=== PATIENT | female | born 1935 | race Caucasian/White ===

== ENCOUNTER 2018-10-21 02:05 | Inpatient (IN) | payer MEDICARE, SELFPAY ==
[2018-10-21] VITALS (13 sets, daily range): BP systolic 95–123; BP diastolic 46–63; PULSE 68–96; RESP 16–18; TEMP 36.1–37.4; O2SAT 92–96; BMI 23.6; BMI 23.7
--- NOTE | 2018-10-21 03:57 | HP.PCM_ITS ---
Problem List (1) Fracture, intertrochanteric, right femur Status: Acute (2) REJI (obstructive sleep apnea) Status: Acute (3) HLD (hyperlipidemia) Status: Acute History of Present Illness Date of Admission: 10/21/18 Chief Complaint: Right hip pain The patient is a 83 year old F with PMH as below who presents to the hospital after mechanical fall at home. But 10 minutes prior she had been doing her sciatica floor exercises and got up and was doing okay and was walking from the living room to the kitchen when she thinks that she tripped either on a fold in the carpet or on her sock and fell on her right side. She initially went to [facility] and had to be transferred here because he did not have any beds available. Initially the orthopedic surgeon on-call was paged and he accepted the patient with the caveat that medicine admit because of her history of hyperlipidemia and obstructive sleep apnea. Other than the hip fracture she states that she has been in her usual health. She tries not to take many medications and is only on an aspirin, and red yeast rice. She also states that she has chronic right arm swelling from lymphedema secondary to an axillary lymph node dissection where they removed 18 lymph nodes secondary to a right breast mass after lumpectomy. Denies any chest pain, shortness of breath, lightheadedness or dizziness. She states that she is able to walk for 25 minutes a day and does not get short of breath going up and down stairs. She does not bruise easily though she did have heavy menstrual periods prior to menopause. EKG at the outside facility appears normal and her CBC and BMP at the outside hospital were also normal. PT/INR had not been obtained. Also she had a chest x-ray at the outside hospital which was read as normal and she had the right hip x-ray which showed the nondisplaced right intertrochanteric femur fracture. Did not repeat any of these images as a CD had been sent with her records and can be reviewed. Past Medical History Allergies sulfamethoxazole [From Septra] Allergy (Verified 10/21/18 02:22) Swelling trimethoprim [From Septra] Allergy (Verified 10/21/18 02:22) Swelling ciprofloxacin [From Cipro] Adverse Reaction (Verified 10/21/18 02:22) Other ankle swelled up and could not move legs Home Medications: Ambulatory Orders Medication Instructions Recorded Aspirin [Aspirin, Baby] 81 mg PO SUMOWEFR 10/21/18 Gluc Dominguez/Chondro Dominguez A/Vit C/Mn 1 each PO TIDCM 10/21/18 [Glucosamine-Chondroitin Cap] Pyridoxine HCl [Vitamin B-6] 50 mg PO DAILY 10/21/18 Red Yeast Rice 600 mg PO SA 10/21/18 Surgical History: - - Lumpectomy on the right with lymph node dissection Smoking Status: Never smoker Alcohol: None Drugs: None - *Family History Maternal History Items: Cancer, Heart Disease Paternal History Items: Heart Disease Review of Systems Constitutional: Denies: Chills, Fever, Weight Change HEENT: Denies: Head Aches, Sinus Congestion, Sinus Drainage Cardiovascular: Denies: Chest Pain, Palpitations Respiratory: Denies: Cough, Shortness of breath at rest, Sputum production Gastrointestinal: Denies: Abdominal Pain, Nausea, Vomiting Genitourinary: Denies: Dysuria Musculoskeletal: Reports: - - Right hip pain. Denies: Joint Pain, Joint Tenderness Skin: Denies: Rash, Wounds Neurological: Denies: Numbness, Tingling, Focal weakness Psychiatric: Denies: Anxiety, Depression, Homicidal Ideations, Suicidal Ideations Hematologic/ Lymphatic: Denies: Easy Bruising, Easy Bleeding VTE Information - Inpt Only VTE Present on Admission: No Patient Problems: Active and Suspected Problems Fracture, intertrochanteric, right femur (Acute) REJI (obstructive sleep apnea) (Acute) HLD (hyperlipidemia) (Acute) - Physical Exam General: Alert, Oriented x3, Cooperative, No apparent distress HEENT: Atraumatic, PERRLA, EOMI, Normocephalic Oral: Moist Mucosa Neck: Supple, No JVD, Trachea Midline Lungs: Clear to auscultation, Normal air movement, No rhonchi, No wheeze, No rales Cardiovascular: Regular rate, Regular Rhythm, Normal S1, Normal S2, No murmurs Abdomen: Soft, Non Tender, Non-Distended, No Hepato-splenomegaly Extremities: Capillary Refill Less than 3 Seconds, Edema - Right upper extremity nonpitting Skin: No rashes, No breakdown Musculoskeletal: Tenderness - Right hip Neurological: Neuro grossly intact, Sensory exam intact to light touch and pain Psych/Mental Status: Normal Affect, Appropriate Vital Signs Temp Pulse Resp BP Pulse Ox 98.1 F 88 18 116/51 L 93 10/21/18 02:16 10/21/18 02:16 10/21/18 02:16 10/21/18 02:16 10/21/18 02:16 Oxygen Delivery Method Room Air Weight: 142 lb 3.17 oz Body Mass Index (BMI) 23.6 Assessment/Plan All Active Problems Fracture, intertrochanteric, right femur (Acute) REJI (obstructive sleep apnea) (Acute) HLD (hyperlipidemia) (Acute) 1. Right nondisplaced intertrochanteric femur fracture -Consult to orthopedic surgery for evaluation and management -We will control pain -Zofran for nausea as needed -PT/OT -Make n.p.o. for now pending surgical evaluation -We will hold her home aspirin -We will obtain a PT/INR in the morning as this was not done at the outside hospital 2. HLD -She can continue her red yeast rice -We do not have any lipid values in this hospital system 3. REJI -Stable -We will continue with her CPAP at night E: SCDs Code Visit Inpatient E&M: 57559 Init Hosp L2
[2018-10-21 05:09] LABS: Absolute Lymphocyte Count 0.66 X10^3/ul (0.83-4.51); Absolute Neutrophil Count 6.8 X10^3/uL (2.0-7.7); Basophil# 0.02 X10^3/uL; Basophil% 0.2 % (0-1); Eosinophil# 0.05 X10^3/uL; Eosinophils% 0.6 % (0-5); Hematocrit 37.3 % (37-47); Hemoglobin 12.1 g/dl (12.0-15.0); Lymphocyte # 0.66 X10^3/ul (4.0); Lymphocyte % 7.7 % (19-41); Mean Corp Hgb Conc 32.4 g/gl (32-36); Mean Corpuscular Hgb 30.3 pg (27.0-32.0); Mean Corpuscular Volume 93.3 fL (81-99); Mean Platelet Vol. 10.1 fl (6.2-12.0); Monocyte# 1.07 X10^3/uL; Monocyte% 12.4 % (0-10); Neutrophil # 6.79 X10^3/uL (2.7-7.7); Platelet Count 196 K/mm3 (150-450); RBC Distribution Width CV 13.4 % (11.6-14.6); RBC Distribution Width SD 44.7 fl (35.1-43.9); White Blood Count 8.6 K/mm3 (4.4-11.0)
[2018-10-21 05:13] LABS: POSITIVE COUNT NO; POSITIVE DIFFERENTIAL NO; POSITIVE MORPHOLOGY NO
[2018-10-21] MEDS: Morphine 2 MG/ML Syringe IV ×3 (05:16→11:37)
[2018-10-21 05:18] LABS: Prothrombin Time (Protime)PT. 13.2 SECONDS (11.7-14.9)
[2018-10-21 05:28] LABS: Anion Gap 7 (5-15); BUN 21 mg/dL (7-18); BUN/Creat Ratio 24.5 RATIO (10-20); Calcium,Total 8.6 mg/dL (8.5-10.1); Chloride 110 mmol/L (98-107); Creatinine, Serum 0.86 mg/dL (0.55-1.02); EST Glomerular Filtration Rate 67 mL/min (>60); Est Glom Filt Rate - Afr Amer 81 mL/min (>60); Estimated Creatinine Clearance 45.38 ml/min; Glucose 118 mg/dL (74-106); Potassium 3.8 mmol/L (3.5-5.1); Sodium Level 142 mmol/L (136-145)
--- NOTE | 2018-10-21 07:09 | RAD_ITS ---
STUDY: X-RAY - PELVIS AND RIGHT HIP REASON FOR EXAM: Female, 83 years old. ORIF TECHNIQUE: 6 Limited fluoroscopic views of the pelvis and hip. COMPARISON: None. FINDINGS: 6 intraoperative fluoroscopic images were obtained as the patient is undergone ORIF of a subcapital femoral neck fracture. RAD/Hip Min 2 Views (Portable) IMPRESSION: ORIF Electronically Signed: Konrad Cason MD at 15:30 EDT , Service support ,
[2018-10-21] MEDS: 0.9% NaCl Peripheral Flush Adult/Peds IV (08:32)
--- NOTE | 2018-10-21 09:39 | PCM.PROGNOTE ---
Patient Problems: Active and Suspected Problems Fracture, intertrochanteric, right femur (Acute) REJI (obstructive sleep apnea) (Acute) HLD (hyperlipidemia) (Acute) Subjective: The patient is an 83-year-old female with a past medical history of obstructive sleep apnea, breast cancer (diagnosed and treated approximately 10 years ago - follows with Dr. Logan),OA, vitamin D deficiency and hyperlipidemia who presented to [facility] emergency department after a mechanical fall at home. Vital signs of presentation to the emergency room for 98.1 temp, heart rate of 88, blood pressure 116/51, respiratory rate of 18 and she was 93% saturated on room air. Review of the laboratory shows a white blood cell count of 8.6 with 79% neutrophils, likely due to stress. EMILY globin was 12.1 and platelet count was 196,000. BMP is remarkable for an elevated BUN at 21 with a creatinine of 0.86. Random blood sugar was mildly increased at 118. EKG shows normal sinus rhythm with incomplete right bundle branch block. CXR at outside ED showed no infiltrates, pleural effusions or pulmonary vascular congestion. She was admitted to the hospital and Dr. Hwang was consulted for ORIF of the right hip. . Blood pressure is currently 95/57 with a MAP of 69. The current decrease is likely due to morphine sulfate given at 830 adn dehydration. She denies CP, SOB, nausea, abdominal pain. MS is controlling the pain adequately. CPAP pressure is 8 - Physical Exam General: Alert, Oriented x3, Cooperative, Well developed, Well nourished HEENT: Atraumatic, PERRLA, Normocephalic Oral: Dry Mucosa, - - she has an overbite Neck: Supple, No JVD, Negative Carotid Bruits, - - Carotids have brisk upstroke and excellent pulse volume bilaterally Lungs: Clear to auscultation Cardiovascular: Regular rate, Regular Rhythm, Normal S1, Normal S2, No murmurs, No Ectopic Activity, No rub noted, No Gallop Abdomen: Bowel Sounds Present, Soft, Non Tender, Non-Distended Extremities: No clubbing, No cyanosis, No edema, Capillary Refill Less than 3 Seconds, No Calf Tenderness, Peripheral Pulses Normal, - - The right lower extremity is shortened and externally rotated Skin: No rashes, No breakdown Musculoskeletal: No Muscle Wasting, Arthritic Changes Neurological: Cranial nerves II-XII grossly intact, Neuro grossly intact Psych/Mental Status: Normal Affect, Appropriate Vital Signs Temp Pulse Resp BP Pulse Ox 98.1 F 78 16 95/57 L 93 10/21/18 08:35 10/21/18 08:35 10/21/18 08:35 10/21/18 08:35 10/21/18 08:35 Oxygen Delivery Method Room Air Weight: 142 lb 3.17 oz Body Mass Index (BMI) 23.6 Intake and Output for Last 24 Hours 10/19/18 10/20/18 10/21/18 23:59 23:59 23:59 Output Total 400 / 400 Balance -400 / -400 Laboratory Tests Past 24 Hrs 10/21/18 10/21/18 10/21/18 04:48 04:48 04:48 WBC 8.6 RBC 4.00 L Hgb 12.1 Hct 37.3 MCV 93.3 MCH 30.3 MCHC 32.4 RDW 13.4 RDW Differential 44.7 H Plt Count 196 MPV 10.1 Immature Gran % (Auto) 0.100 Neut % (Auto) 79.0 H Lymph % (Auto) 7.7 L [place] % (Auto) 12.4 H Eos % (Auto) 0.6 Baso % (Auto) 0.2 Absolute Neuts (auto) 6.8 Absolute Lymphs (auto) 0.66 L Total Counted Not Reportable PT 13.2 INR 1.0 Sodium 142 Potassium 3.8 Chloride 110 H Carbon Dioxide 25.0 Anion Gap 7 BUN 21 H Creatinine 0.86 Estim Creat Clear Calc 45.38 Est GFR (MDRD) Af Amer 81 Est GFR (MDRD) Non-Af 67 BUN/Creatinine Ratio 24.5 H Glucose 118 H Calcium 8.6 Blood Type Antibody Screen 10/21/18 04:48 WBC RBC Hgb Hct MCV MCH MCHC RDW RDW Differential Plt Count MPV Immature Gran % (Auto) Neut % (Auto) Lymph % (Auto) [place] % (Auto) Eos % (Auto) Baso % (Auto) Absolute Neuts (auto) Absolute Lymphs (auto) Total Counted PT INR Sodium Potassium Chloride Carbon Dioxide Anion Gap BUN Creatinine Estim Creat Clear Calc Est GFR (MDRD) Af Amer Est GFR (MDRD) Non-Af BUN/Creatinine Ratio Glucose Calcium Blood Type A POSITIVE Antibody Screen NEGATIVE Medical Necessity - Tobacco Use Smoking Status: Never smoker Assessment/Plan All Active Problems Fracture, intertrochanteric, right femur (Acute) REJI (obstructive sleep apnea) (Acute) HLD (hyperlipidemia) (Acute) Impressions 1. Intertrochanteric fracture of the right hip secondary to mechanical fall 2. Obstructive sleep apnea on CPAP at 8 cm of pressure 3. Hyperlipidemia 4. History of breast cancer diagnosed in 2008-follows with Dr. José Melchor 5. History of vitamin D deficiency 6. Dehydration-mucous membranes are dry and the BUN/creatinine ratio is 24.5 She is very active and exercises at least 4 times a week for 30 minutes, eats healthy 1 L of normal saline over the next 1 hour and then 75 cc an hour until surgery Recheck lab in the a.m. Melatonin at at bedtime for sleep Her son will bring her CPAP unit in Start Tylenol 1 g p.o. every 8 hours Tramadol 50 mg p.o. every 6 hours as needed pain PT/OT consults Prolonged Care Time: Additional care time for treatment, evaluation, stabilization, discussion with patient as well as family and consultants above initial 70 min progress note evaluation: 45 minutes Code Visit Procedures: 80091 Prolonged Physician INPT
--- NOTE | 2018-10-21 10:51 | CASEMGMT ---
Addendum entered by Ivet Durant 10/21/18 11:06: Pt does use CPAP at night. DODIE Cao Original Note: SW met w/pt in room, pt's sons Sarbjit and Aureliano are also present. SW spoke w/pt about prior level of function and discharge plan. PCP: JESSICA Arellano with [facility]. Pt asked about getting established with one of the doctors there--as her doctor there retired and then the other physicians had no space left. SW advised pt's son to call for her. Insurance/Prescription Benefit: [employer] Medicare Preferred Pharmacy: [facility], has use [facility] in the past. Pt is not on any medication regularly however. LW/POA: Pt states her sons Sarbjit and Aureliano have joint POA. LNOK: Pt has three sons, Sarbjit and Aureliano in [place], and son Jose Carlos in [place]. Pt also agreeable for Jose Carlos to attain medical information on pt. Local sons have been keeping Jose Carlos informed of what is going on. Living arrangements: Pt lives home alone in a ranch style house. Her in May. Prior Level of Function: Pt fully independent, managing well, though states she is having some decline in what she is able to do. DME/HHC/SNF: Pt has a cane but has not used it. No HHC, no history of SNF. Pt would like to go to [facility] at discharge, had already been thinking about putting herself on the wait list for when she needs it. SW gave son list of SNF's in Network, [facility] is in network w/insurance. [facility] called, there is bed availability in a semiprivate room, if they can take pt they could move pt to private room when available. JAYLON faxed initial clinical information to [facility]. SW let pt and sons know that [facility] does have availability in a semiprivate room. Pt could go there to a semiprivate room--as long as they can take her--and move her to a private room when available. Pt agreeable to this. Pt also asked about SNF benefit w/insurance, [facility] called, pt has 100% coverage, no copays, unlimited days subject to precert. Pt has a $150 deductible. JAYLON gave pt and son this information. SW explained the hope would be she can go under her insurance and they would authorize her for as long as she needs to be there. If she were to need longer she could speak with [facility] about private paying. Pt's goal is to return home but states she does have some funds to pay privately if needed. Plan: [facility], will fax updates tomorrow to make sure [facility] can take her and if so they can start precert. SW will follow up tomorrow. DODIE Cao
[2018-10-21] MEDS: 0.9% Normal Saline 1,000 ML 500 ML IV (10:56)
--- NOTE | 2018-10-21 13:12 | CON.PCM_ITS ---
Reason for Consult Date of Consultation: 10/21/18 Reason for Consultation: Right intertrochanteric hip fracture. requested by Dr grady preston History of Present Illness: The patient is a 83 year old F with history of hyperlipidemia and REJI as well as right lumpectomy. Patient presents with right hip pain. Patient was in her home last evening doing stretches. When she stood up she noted feeling a little bit off and then she tripped over an inanimate but objects in her house. Deborah ruelas fell and immediately had pain on her right hip. She does report some chronic groin pain and difficulties with hip range of motion. However at this point she can no longer stand on her hip or leg. Patient was taken to the emergency department at [facility] due to lack of beds was transferred [facility] for definitive care. She was seen by medicine overnight and cleared. She reports 5 out of 10 pain worse with motion better with immobilization. She is also having improved pain with pain medications. She denies any numbness and tingling distally that is new however she does have chronic neuropathy of bilateral feet. It is a dull achy pain in her hip and thigh. Patient is a community ambulator who lives at home alone and functions independently. However, she does state that she has been thinking about using her previous 's cane as her stability has waned in the last couple of months. Past Medical History Allergies sulfamethoxazole [From Septra] Allergy (Verified 10/21/18 02:22) Swelling trimethoprim [From Septra] Allergy (Verified 10/21/18 02:22) Swelling ciprofloxacin [From Cipro] Adverse Reaction (Verified 10/21/18 02:22) Other ankle swelled up and could not move legs Home Medications: Ambulatory Orders Medication Instructions Recorded Aspirin [Aspirin, Baby] 81 mg PO SUMOWEFR 10/21/18 Gluc Dominguez/Chondro Dominguez A/Vit C/Mn 1 each PO TIDCM 10/21/18 [Glucosamine-Chondroitin Cap] Pyridoxine HCl [Vitamin B-6] 50 mg PO DAILY 10/21/18 Red Yeast Rice 600 mg PO SA 10/21/18 Surgical History: - - Lumpectomy on the right with lymph node dissection. Hysterectomy, right inguinal hernia repair Psychiatric History: No pertinent psych hx Lives: Alone Smoking Status: Never smoker Alcohol: None Drugs: None - *Family History Maternal History Items: Cancer, Heart Disease Paternal History Items: Heart Disease Review of Systems Constitutional: Denies: Chills, Fever, Weight Change HEENT: Denies: Head Aches, Sinus Congestion, Sinus Drainage Cardiovascular: Denies: Chest Pain, Palpitations Respiratory: Denies: Cough, Shortness of breath at rest, Sputum production Gastrointestinal: Denies: Abdominal Pain, Nausea, Vomiting Genitourinary: Denies: Dysuria Musculoskeletal: Reports: Joint Pain, Joint Tenderness Skin: Denies: Rash, Wounds Neurological: Reports: - - feels off balance at times. Denies: Focal weakness, Numbness, Tingling Psychiatric: Denies: Anxiety, Depression, Homicidal Ideations, Suicidal Ideations Hematologic/ Lymphatic: Denies: Easy Bruising, Easy Bleeding Patient Problems: Active and Suspected Problems Fracture, intertrochanteric, right femur (Acute) REJI (obstructive sleep apnea) (Acute) HLD (hyperlipidemia) (Acute) Objective: Right shoulder, knee chest and hip x-rays were reviewed. Pertinent findings were on the hip with severe osteoarthritis and a minimally displaced intertrochanteric hip fracture. - Physical Exam General: Alert, Oriented x3, Cooperative Extremities: - - Right lower extremity: Skin clean, dry, and intact. Limb is shortened and externally rotated Motor is intact dorsiflexion, EHL and plantar flexion. Sensation is intact to light touch saphenous, charo,l superficial peroneal, deep peroneal and tibial distributions. Calves are soft and supple. Vital Signs Temp Pulse Resp BP Pulse Ox 98.2 F 68 18 108/54 L 93 10/21/18 11:32 10/21/18 11:32 10/21/18 11:32 10/21/18 11:32 10/21/18 11:32 Oxygen Delivery Method Room Air Weight: 142 lb 3.17 oz Body Mass Index (BMI) 23.6 Intake and Output for Last 24 Hours 10/19/18 10/20/18 10/21/18 23:59 23:59 23:59 Intake Total 371 / 371 Output Total 700 / 700 Balance -329 / -329 Laboratory Tests Past 24 Hrs 10/21/18 10/21/18 10/21/18 04:48 04:48 04:48 WBC 8.6 RBC 4.00 L Hgb 12.1 Hct 37.3 MCV 93.3 MCH 30.3 MCHC 32.4 RDW 13.4 RDW Differential 44.7 H Plt Count 196 MPV 10.1 Immature Gran % (Auto) 0.100 Neut % (Auto) 79.0 H Lymph % (Auto) 7.7 L [place] % (Auto) 12.4 H Eos % (Auto) 0.6 Baso % (Auto) 0.2 Absolute Neuts (auto) 6.8 Absolute Lymphs (auto) 0.66 L Total Counted Not Reportable PT 13.2 INR 1.0 Sodium 142 Potassium 3.8 Chloride 110 H Carbon Dioxide 25.0 Anion Gap 7 BUN 21 H Creatinine 0.86 Estim Creat Clear Calc 45.38 Est GFR (MDRD) Af Amer 81 Est GFR (MDRD) Non-Af 67 BUN/Creatinine Ratio 24.5 H Glucose 118 H Calcium 8.6 Blood Type Antibody Screen 10/21/18 04:48 WBC RBC Hgb Hct MCV MCH MCHC RDW RDW Differential Plt Count MPV Immature Gran % (Auto) Neut % (Auto) Lymph % (Auto) [place] % (Auto) Eos % (Auto) Baso % (Auto) Absolute Neuts (auto) Absolute Lymphs (auto) Total Counted PT INR Sodium Potassium Chloride Carbon Dioxide Anion Gap BUN Creatinine Estim Creat Clear Calc Est GFR (MDRD) Af Amer Est GFR (MDRD) Non-Af BUN/Creatinine Ratio Glucose Calcium Blood Type A POSITIVE Antibody Screen NEGATIVE Assessment/Plan All Active Problems Fracture, intertrochanteric, right femur (Acute) REJI (obstructive sleep apnea) (Acute) HLD (hyperlipidemia) (Acute) 83-year-old female with right intertrochanteric hip fracture. Ankle history of the disease process and treatment options were discussed the patient. Risks and benefits of cephalo-medullary nail in the right hip were discussed which include but are not limited to blood loss, DVTs, PEs, neurovascular damage, infection, and risk of anesthesia including loss of life. Nonunion, malunion and hardware failure were also discussed. At this time patient demonstrate an understanding. We did discuss nonoperative treatment which I do not recommend. She would like to proceed with a right hip cephalo-medullary nail. 2 g of Ancef were ordered on-call to the operating room. She is currently n.p.o. We will proceed with surgery this afternoon. MARTHA [facility] Office:
--- NOTE | 2018-10-21 14:05 | PCM.OPRPT ---
Report of Operation Date of Procedure: 10/21/18 Pre-Operative Diagnosis: Right intertrochanteric hip fracture Post-Operative Diagnosis: Right intertrochanteric hip fracture Surgery/Procedure Performed:: Right hip cephalo-medullary nail Description of Surgical Findings:: Stable well reduced fracture filler spreader: Alexandra Romeo Type of Anesthesia:: General Anesthesiologist: Sorin Chen Special Medications: 2 g Ancef Estimated Blood Loss (mL): 75 Fluids Replaced: 500 mL crystalloid Description of Procedure: Components used: 1. [employer] InterTAN nail 10 mm, 34 cm, 125 degree 2. [employer] InterTAN lag screw 85mm Brief history operative indications: 83-year-old female who lives independently at home fell yesterday and had an intertrochanteric hip fracture. After extensive discussion including risk and benefits which include but are not limited to blood loss, PEs, DVTs, neurovascular damage, nonunions, malunions and screw cut out patient has elected to proceed with a R cephalo-medullary nail. Procedure: On the date of the procedure the patient's R hip was marked in the preoperative area and patient was taken back to the operating room. Anesthetic was administered and patient was transferred to the table were all bony prominence identified well-padded and the ipsilateral arm was placed across the chest. Patient was then translated down to the perineal post and the operative leg was placed in the boot while the nonoperative leg was lowered and secured. The operative leg was placed in traction and internal rotation and live fluoroscopy was used to verify adequate reduction. The operative leg was then prepped in a sterile fashion with chlorhexidine while the surgeon scrubbed. Upon reentering the room the operative extremity was draped in the standard orthopedic fashion. Skin incision was marked and a timeout was called. Everyone agreed upon the side, the site, the procedure be performed, patient's identity, and antibiotics given. Skin incision was made and the position of the entry guidepin was verified using live fluoroscopy. Once we were satisfied with our position the pin was advanced in the soft tissue protector was placed over the pin. The entry reamer was then advanced into the proximal portion of the femur. A guidewire was placed down the intramedullary canal and fluoroscopy was used to verify that the anterior cortex had not been breached distally as well as satisfactory distal positioning. We then used live fluoroscopy to verify the length of the nail and a [employer] InterTAN 34 cm by 10 mm 125 hip nail was selected. The 11.5 mm reamer was then passed. The nail was then attached to the finger buffs assembler and inserted into the intramedullary canal. The appropriate depth was verified and the skin incision for the lag screw was made. The lag screw guidepin was then placed under live fluoroscopy and when a satisfactory position was obtained the length of the screw was measured and the standard technique to drill for the lag screws was performed. The anti-rotation bar was used. At this time a 85mm lag screw was selected with its corresponding compression screw. The lag screw was then passed and traction was left off the leg. The compression screw was then passed and the fracture was compressed. The final position of the lag screw was verified under fluoroscopy. Once we were satisfied with our positioning the wounds were copiously irrigated out with normal saline skin was closed with 2-0 Vicryl and mayo for final skin closure. A sterile dressing was placed with Xeroform. Patient was then awakened by anesthesia transferred from the fracture table back to their hospital bed and transferred to the PACU for recovery. Postoperative plan: Patient will be weight-bear as tolerated. Xarelto for DVT prophylaxis with knee-high stockings. Follow up in the office in 2 weeks. Grafts/Implants Used: Hogan [employer] Nephew InterTAN - Complications No intraoperative complications - Admit VTE Documentation VTE Present on Admission: No VTE Mechan Device Prophylaxis: SCD's, Thigh High LANI Hose VTE Pharm Prophylaxis ordered?: Yes
--- NOTE | 2018-10-21 14:08 | OP.PCM_ITS ---
Report of Operation Date of Procedure: 10/21/18 Pre-Operative Diagnosis: Right intertrochanteric hip fracture Post-Operative Diagnosis: Right intertrochanteric hip fracture Surgery/Procedure Performed:: Right hip cephalo-medullary nail Description of Surgical Findings:: Stable well reduced fracture television repair teacher: Alexandra Romeo Type of Anesthesia:: General Anesthesiologist: Sorin Chen Special Medications: 2 g Ancef Estimated Blood Loss (mL): 75 Fluids Replaced: 500 mL crystalloid Description of Procedure: Components used: 1. [employer] InterTAN nail 10 mm, 34 cm, 125 degree 2. [employer] InterTAN lag screw 85mm Brief history operative indications: 83-year-old female who lives independently at home fell yesterday and had an intertrochanteric hip fracture. After extensive discussion including risk and benefits which include but are not limited to blood loss, PEs, DVTs, neurovascular damage, nonunions, malunions and screw cut out patient has elected to proceed with a R cephalo-medullary nail. Procedure: On the date of the procedure the patient's R hip was marked in the preoperative area and patient was taken back to the operating room. Anesthetic was administered and patient was transferred to the table were all bony prominence identified well-padded and the ipsilateral arm was placed across the chest. Patient was then translated down to the perineal post and the operative leg was placed in the boot while the nonoperative leg was lowered and secured. The operative leg was placed in traction and internal rotation and live fluoroscopy was used to verify adequate reduction. The operative leg was then prepped in a sterile fashion with chlorhexidine while the surgeon scrubbed. Upon reentering the room the operative extremity was draped in the standard orthopedic fashion. Skin incision was marked and a timeout was called. Everyone agreed upon the side, the site, the procedure be performed, patient's identity, and antibiotics given. Skin incision was made and the position of the entry guidepin was verified using live fluoroscopy. Once we were satisfied with our position the pin was advanced in the soft tissue protector was placed over the pin. The entry reamer was then advanced into the proximal portion of the f emur. A guidewire was placed down the intramedullary canal and fluoroscopy was used to verify that the anterior cortex had not been breached distally as well as satisfactory distal positioning. We then used live fluoroscopy to verify the length of the nail and a [employer] InterTAN 34 cm by 10 mm 125 hip nail was selected. The 11.5 mm reamer was then passed. The nail was then attached to the municipal court magistrate and inserted into the intramedullary canal. The appropriate depth was verified and the skin incision for the lag screw was made. The lag screw guidepin was then placed under live fluoroscopy and when a satisfactory position was obtained the length of the screw was measured and the standard technique to drill for the lag screws was performed. The anti-rotation bar was used. At this time a 85mm lag screw was selected with its corresponding compression screw. The lag screw was then passed and traction was left off the leg. The compression screw was then passed and the fracture w as compressed. The final position of the lag screw was verified under fluoroscopy. Once we were satisfied with our positioning the wounds were copiously irrigated out with normal saline skin was closed with 2-0 Vicryl and mayo for final skin closure. A sterile dressing was placed with Xeroform. Patient was then awakened by anesthesia transferred from the fracture table back to their hospital bed and transferred to the PACU for recovery. Postoperative plan: Patient will be weight-bear as tolerated. Xarelto for DVT prophylaxis with knee-high stockings. Follow up in the office in 2 weeks. Grafts/Implants Used: [employer]hew InterTAN - Complications No intraoperative complications - Admit VTE Documentation VTE Present on Admission: No VTE Mechan Device Prophylaxis: SCD's, Thigh High LANI Hose VTE Pharm Prophylaxis ordered?: Yes
--- NOTE | 2018-10-21 14:32 | CHAPLAIN ---
Type of Pastoral Visit ___ Initial Visit ___ Follow-up Visit ___ On-call Visit ___ General Patient Visit ___ Spiritual Assessment ___ Family Conference ___ Bereavement ___ Rapid Response ___ Code Blue _x__ Other (describe below) Pastoral Care Referral From _x__ Patient ___ Family ___ Nurse ___ Physician ___ Human Resources Operations Manager ___ Salesperson Men'S Hats ___ Other (describe below) Sacrament/Intervention ___ Active listening ___ Anointing ___ Advent ___ Bereavement ___ Communion ___ Venus exploration ___ ___ Life review ___ Prayer ___ Reconciliation ___ Sacrament of Sick ___ Supportive presence ___ Wedding ___ Other (describe below) Pastoral Comments patient is out of room and so is bed; left calling card
--- NOTE | 2018-10-21 14:45 | RAD_ITS ---
STUDY: X-RAY - PELVIS AND RIGHT HIP REASON FOR EXAM: Female, 83 years old. Postop from ORIF TECHNIQUE: 4 views of the pelvis and hip. COMPARISON: None. FINDINGS: Patient is postop from ORIF of a subcapital femoral neck fracture. Alignment at the fracture site is anatomic. No plain film evidence of postoperative complication. Normal postoperative soft tissue swelling and subcutaneous emphysema. Age consistent hip and SI joint arthrosis. RAD/HIP, UNI W/ Pelvis 2-3 Views IMPRESSION: Status post ORIF of a subcapital femoral neck fracture of the right hip follow-up recommended to assure osseous union, no demonstrated complications. Electronically Signed: Konrad Cason MD at 15:10 EDT , Service support ,
[2018-10-21] MEDS: 0.9% Normal Saline 1,000 ML 75 ML IV (15:31)
--- NOTE | 2018-10-21 19:53 | CPS ---
set up pt own cpap machine-
[2018-10-21] MEDS: MELATONIN 3 MG TABLET 1.5 MG PO (21:10)
[2018-10-21] MEDS: Cefazolin 1 GM/50 ML BAG IV (21:10)
[2018-10-21] MEDS: Acetaminophen 500 MG Tablet 1000 MG PO (21:10)
[2018-10-22 02:16] VITALS: BP 97/83; PULSE 75; RESP 18; TEMP 36.8; O2SAT 97
[2018-10-22 02:57] VITALS: BP 102/48; PULSE 73; RESP 16; TEMP 36.6; O2SAT 94
[2018-10-22] MEDS: traMADol 50 MG Tablet PO ×3 (02:58→18:01)
[2018-10-22] MEDS: 0.9% Normal Saline 1,000 ML 75 ML IV (05:03)
[2018-10-22] MEDS: Cefazolin 1 GM/50 ML BAG IV (05:03)
[2018-10-22] MEDS: Rivaroxaban 10 MG Tablet PO (05:04)
[2018-10-22] MEDS: Acetaminophen 500 MG Tablet 1000 MG PO ×3 (05:04→21:24)
[2018-10-22 05:49] LABS: Hematocrit 33.3 % (37-47); Mean Corpuscular Hgb 31.1 pg (27.0-32.0); Mean Corpuscular Volume 94.1 fL (81-99); Mean Platelet Vol. 10.5 fl (6.2-12.0); Platelet Count 169 K/mm3 (150-450); RBC Distribution Width CV 13.4 % (11.6-14.6); RBC Distribution Width SD 44.2 fl (35.1-43.9); Red Blood Count 3.54 M/mm3 (4.2-5.4); White Blood Count 6.7 K/mm3 (4.4-11.0)
[2018-10-22 05:52] LABS: Scan Indicated on CBC? Y/N NO
[2018-10-22 06:07] LABS: Anion Gap 6 (5-15); BUN 16 mg/dL (7-18); BUN/Creat Ratio 19.3 RATIO (10-20); Calcium,Total 7.8 mg/dL (8.5-10.1); Chloride 109 mmol/L (98-107); Cholesterol 160 mg/dL (200); Creatinine, Serum 0.83 mg/dL (0.55-1.02); EST Glomerular Filtration Rate 70 mL/min (>60); Est Glom Filt Rate - Afr Amer 85 mL/min (>60); Estimated Creatinine Clearance 47.02 ml/min; Glucose 100 mg/dL (74-106); High Density Lipoprotein 61 mg/dL; Magnesium 2.1 mg/dL (1.6-2.6); Phosphorus 3.2 mg/dL (2.5-4.9); Sodium Level 139 mmol/L (136-145); Triglycerides 70 mg/dL; Very Low Density Lipoprotein 14 mg/dL (5-40)
--- NOTE | 2018-10-22 06:39 | PCM.PN.ORT ---
Patient Problems: Active and Suspected Problems Fracture, intertrochanteric, right femur (Acute) REJI (obstructive sleep apnea) (Acute) HLD (hyperlipidemia) (Acute) Subjective: The patient was sitting in bed upon examination. Patient denies any chest pain, shortness of breath, dizziness, lightheadedness, nausea or vomiting, or calf pain. Pain is controlled on medications. No adverse overnight events. Overall patient is doing well. She states her right hip pain is been well controlled. She does wish to go to [facility] in [facility] upon discharge. Objective: Vital signs stable and afebrile. Patient is able to plantarflex and dorsiflex actively. Sensation is intact to light touch to saphenous, sural, superficial and deep peroneal, and tibial distribution. Dressing is clean dry and intact. Negative Homans bilaterally, negative signs and symptoms of DVT. - Physical Exam General: Alert, Oriented x3, Cooperative, No apparent distress Vital Signs Temp Pulse Resp BP Pulse Ox 97.8 F 73 16 102/48 L 94 10/22/18 02:57 10/22/18 02:57 10/22/18 02:57 10/22/18 02:57 10/22/18 02:57 Oxygen Flow Rate (L/min) 2 Oxygen Delivery Method Room Air Weight: 64.5 kg Body Mass Index (BMI) 23.6 Intake and Output for Last 24 Hours 10/20/18 10/21/18 10/22/18 23:59 23:59 23:59 Intake Total 1326 / 1326 1474 / 1474 Output Total 990 / 990 375 / 375 Balance 336 / 336 1099 / 1099 Laboratory Tests Past 24 Hrs 10/21/18 10/22/18 10/22/18 04:48 05:12 05:12 WBC 6.7 RBC 3.54 L Hgb 11.0 L Hct 33.3 L MCV 94.1 MCH 31.1 MCHC 33.0 RDW 13.4 RDW Differential 44.2 H Plt Count 169 MPV 10.5 Sodium 139 Potassium 4.0 Chloride 109 H Carbon Dioxide 24.0 Anion Gap 6 BUN 16 Creatinine 0.83 Estim Creat Clear Calc 47.02 Est GFR (MDRD) Af Amer 85 Est GFR (MDRD) Non-Af 70 BUN/Creatinine Ratio 19.3 Glucose 100 Calcium 7.8 L Phosphorus 3.2 Magnesium 2.1 Triglycerides 70 Cholesterol 160 LDL Cholesterol 85 VLDL Cholesterol 14 HDL Cholesterol 61 Blood Type A POSITIVE Antibody Screen NEGATIVE Medical Necessity - Tobacco Use Smoking Status: Never smoker Assessment/Plan All Active Problems Fracture, intertrochanteric, right femur (Acute) REJI (obstructive sleep apnea) (Acute) HLD (hyperlipidemia) (Acute) 1. S/P right hip cephalo-medullary nail POD #1 2. Continue Pain Medications: Tylenol primarily for pain control, OxyIR for breakthrough pain 3. DVT Prophylaxis: Xarelto postoperatively for DVT prophylaxis 4. PT/OT: Weightbearing as tolerated 5. H & H: 11.0/33.3, asymptomatic 6. Encouraged Incentive Spirometry 7. Continue postoperative medical management per medicine: 8. Disposition: Orthopedically patient is doing well. Patient will begin physical therapy today. She is weightbearing as tolerated. Continue with pain medications listed as above. Recommend Xarelto for DVT prophylaxis. Patient will need a 2-week follow-up with [facility] for incision check and x-ray.
--- NOTE | 2018-10-22 08:48 | PN_ITS ---
Patient Problems: Active and Suspected Problems Fracture, intertrochanteric, right femur (Acute) REJI (obstructive sleep apnea) (Acute) HLD (hyperlipidemia) (Acute) Subjective: Postoperative day #1 status post right hip cephalo-medullary nail secondary to intertrochanteric fracture sustained in a fall Patient is an 83-year-old female who had a mechanical fall at home resulting in a right intertrochanteric fracture. Taken to surgery by Dr. Hwang on 10/21/2018 for ORIF. All events of the past 24 hours of been reviewed. She is afebrile. Vital signs are stable Pulse ox on room air ranges from 90 to 97%. All lab was personally reviewed: White blood cell count is within normal limits. The hemoglobin today is 11, down from 12.1 at admission. Platelets are within normal limits. BMP is unremarkable magnesium is 2.1 and the phosphorus is 3.2. Panel shows an LDL of 85 and an HDL of 61. Triglycerides are 70. Objective: PHYSICAL EXAM: GENERAL: alert, oriented X 3, Cooperative, NAD ORAL: moist mucosa, no mucosal lesions, overbite NECK: No JVD, supple, trachea midline LUNGS: CTA, symmetric chest expansion, excellent air exchange HEART: RRR, Normal S1 and S2, no rub, no gallop, no murmur ABDOMEN: soft, NT, ND, BS present, no guarding with palpation EXTREMITIES: no edema, no cyanosis, no calf tenderness, intact sensation to both lower extremities with normal dorsalis pedis pulses SKIN: No rashes, no breakdown, the bandage is dry with no bleeding NEUROLOGIC: no focal neurologic deficits PSYCH: appropriate, normal affect, pleasant - Physical Exam Vital Signs Temp Pulse Resp BP Pulse Ox 97.8 F 73 16 102/48 L 94 10/22/18 02:57 10/22/18 02:57 10/22/18 02:57 10/22/18 02:57 10/22/18 02:57 Oxygen Flow Rate (L/min) 2 Oxygen Delivery Method Room Air Weight: 142 lb 3.17 oz Body Mass Index (BMI) 23.6 Intake and Output for Last 24 Hours 10/20/18 10/21/18 10/22/18 23:59 23:59 23:59 Intake Total 1326 / 1326 1474 / 1474 Output Total 990 / 990 375 / 375 Balance 336 / 336 1099 / 1099 Laboratory Tests Past 24 Hrs 10/22/18 10/22/18 05:12 05:12 WBC 6.7 RBC 3.54 L Hgb 11.0 L Hct 33.3 L MCV 94.1 MCH 31.1 MCHC 33.0 RDW 13.4 RDW Differential 44.2 H Plt Count 169 MPV 10.5 Sodium 139 Potassium 4.0 Chloride 109 H Carbon Dioxide 24.0 Anion Gap 6 BUN 16 Creatinine 0.83 Estim Creat Clear Calc 47.02 Est GFR (MDRD) Af Amer 85 Est GFR (MDRD) Non-Af 70 BUN/Creatinine Ratio 19.3 Glucose 100 Calcium 7.8 L Phosphorus 3.2 Magnesium 2.1 Triglycerides 70 Cholesterol 160 LDL Cholesterol 85 VLDL Cholesterol 14 HDL Cholesterol 61 Medical Necessity - Tobacco Use Smoking Status: Never smoker Assessment/Plan All Active Problems Fracture, intertrochanteric, right femur (Acute) REJI (obstructive sleep apnea) (Acute) HLD (hyperlipidemia) (Acute) Postoperative day #1-status post ORIF of the right hip Impressions 1. Intertrochanteric fracture of the right hip secondary to mechanical fall- status post cephalo-medullary nail 2. Obstructive sleep apnea on CPAP at 8 cm of pressure 3. Hyperlipidemia 4. History of breast cancer diagnosed in 2008-follows with Dr. José Melchor 5. History of vitamin D deficiency 6. Dehydration-mucous membranes are dry and the BUN/creatinine ratio is 24.5 PT/OT evaluation today SNF at discharge -she lives alone but has 2 very concerned doting sons Follow-up with orthopedics in the office in 2 weeks Xarelto 10 mg daily for DVT prophylaxis Code Visit Inpatient E&M: 76270 Subs Hosp L2
[2018-10-22 10:00] VITALS: BP 112/53; PULSE 89; RESP 18; TEMP 36.7; O2SAT 94
--- NOTE | 2018-10-22 10:22 | CASEMGMT ---
Addendum entered by Ivet Durant 10/22/18 13:06: JAYLON spoke w/Rosa M from [facility], she did get the clinical information and started the process w/[employer]. She states that they have not even requested the clinicals yet, and once those are requested it's usually another 24-48 hours before getting precert. Therefore, pt will be here through the weekend. SW will follow up w/[facility] on Thursday. SW let pt and family know that she will be here until Thursday as we will not get precert today. Pt and family state understanding. DODIE Cao Original Note: Addendum entered by Ivet Durant 10/22/18 12:09: SW did fax all updated clinical information to [facility], called and left a message requesting precert be started. DODIE Cao Original Note: SW received a call back from Rosa M at [facility] stating they have a room for pt but would be in the memory unit initially, will move her to a private room when available if that is okay. SW spoke w/pt, she is fine with being in a bed in the memory unit initially, as long as she can be there. JAYLON explained that once PT/OT is completed today, will fax the evaluations and [facility] will start the precert. JAYLON explained it's uncertain if the precert will be attained today, so if it is not pt will be here through the weekend. Pt states understanding. SW will continue to follow. DODIE Cao
[2018-10-22] MEDS: Calcium (Elemental) 500 MG Tablet 1000 MG PO (10:53)
--- NOTE | 2018-10-22 15:56 | CHAPLAIN ---
Type of Pastoral Visit _x__ Initial Visit ___ Follow-up Visit ___ On-call Visit ___ General Patient Visit ___ Spiritual Assessment ___ Family Conference ___ Bereavement ___ Rapid Response ___ Code Blue ___ Other (describe below) Pastoral Care Referral From _x__ Patient _x__ Family ___ Nurse ___ Physician ___ Emergency Operator ___ Liquor Tester ___ Other (describe below) Sacrament/Intervention _x__ Active listening ___ Anointing ___ Protestant ___ Bereavement ___ Communion _x__ Venus exploration ___ _x__ Life review _x__ Prayer ___ Reconciliation ___ Sacrament of Sick _x__ Supportive presence ___ Wedding ___ Other (describe below) Pastoral Comments patient's just before Jada
[2018-10-22 17:00] VITALS: BP 110/52; PULSE 100; RESP 18; TEMP 36.9; O2SAT 93
[2018-10-22 21:07] VITALS: BP 132/59; PULSE 97; RESP 18; TEMP 36.9; O2SAT 95
[2018-10-22] MEDS: MELATONIN 3 MG TABLET 1.5 MG PO (21:24)
[2018-10-23] VITALS (7 sets, daily range): BP systolic 104–144; BP diastolic 48–80; PULSE 94–99; RESP 18–20; TEMP 36.6–36.9; O2SAT 92–97
[2018-10-23] MEDS: traMADol 50 MG Tablet PO ×3 (03:52→16:00)
[2018-10-23] MEDS: Acetaminophen 500 MG Tablet 1000 MG PO ×3 (06:09→21:27)
[2018-10-23] MEDS: Rivaroxaban 10 MG Tablet PO (06:09)
--- NOTE | 2018-10-23 07:47 | PCM.PROGNOTE ---
Patient Problems: Active and Suspected Problems Fracture, intertrochanteric, right femur (Acute) Subjective: Chief complaint: Follow-up after admission for right hip fracture status post open reduction internal fixation. Patient seen and examined. No acute events overnight. Her right hip pain is well controlled patient has been ambulating with a walker. Denies any significant complaints. Her vital signs are stable. - Physical Exam General: Alert, Oriented x3, Cooperative, No apparent distress HEENT: Atraumatic, PERRLA, EOMI, Normocephalic Oral: Moist Mucosa, No Gingival or Mucosal Lesions/ Ulcerations Neck: Supple, No JVD, Negative Carotid Bruits, Trachea Midline, Thyroid Normal Size and Texture Lungs: Clear to auscultation, Normal air movement, No rhonchi, No wheeze, No rales Cardiovascular: Regular rate, Regular Rhythm, Normal S1, Normal S2, PMI Normal Abdomen: Bowel Sounds Present, Soft, Non Tender, Non-Distended, No Hepato-splenomegaly Extremities: No clubbing, No cyanosis, No edema Skin: No rashes, No breakdown Lymphatic: No Cervical, Supraclavicular, or Inguinal Adenopathy Neurological: Cranial nerves II-XII grossly intact, Neuro grossly intact Psych/Mental Status: Normal Affect, Appropriate, Alert and oriented to time, place, person, mood and affect Vital Signs Temp Pulse Resp BP Pulse Ox 97.8 F 99 18 129/48 H 97 10/23/18 02:40 10/23/18 02:40 10/23/18 02:40 10/23/18 02:40 10/23/18 02:40 Oxygen Flow Rate (L/min) 2 Oxygen Delivery Method Room Air Weight: 142 lb 3.17 oz Body Mass Index (BMI) 23.6 Intake and Output for Last 24 Hours 10/21/18 10/22/18 10/23/18 23:59 23:59 23:59 Intake Total 1326 / 1326 3630 / 3630 700 / 700 Output Total 990 / 990 625 / 625 Balance 336 / 336 3005 / 3005 700 / 700 Medical Necessity - Tobacco Use Smoking Status: Never smoker Assessment/Plan All Active Problems Fracture, intertrochanteric, right femur (Acute) This is an 83 years old female patient admitted to the hospital because of mechanical fall at home and right hip pain, found to have acute traumatic right intertrochanteric hip fracture, underwent open reduction with internal fixation with right hip cephalo-medullary nail. #1 acute traumatic right intertrochanteric hip fracture: Status post ORIF with right cephalo-medullary nail, postoperative day 2. Patient is doing well, pain is well controlled, vital signs are stable. Routine blood work from yesterday reviewed, unremarkable. Patient has been ambulating with walker, doing well. Orthopedic surgery with the case. Awaiting insurance approval for placement to senior living facility. #2 obstructive sleep apnea: On CPAP, continue same treatment. #3 history of breast cancer: Status post surgery, in remission, has been following up with Dr. Garrett. #4 hyperlipidemia: She is not on any statin at this point. Will defer to her PCP as outpatient. #5 DVT prophylaxis: On Xarelto. This note was generated with [employer] dictation software. It may contain incorrect words, spelling, and punctuation that were not noted in checking the note before signing. Code Visit Inpatient E&M: 20310 Subs Hosp L2
--- NOTE | 2018-10-23 08:52 | PCM.PN.ORT ---
Patient Problems: Active and Suspected Problems Fracture, intertrochanteric, right femur (Acute) REJI (obstructive sleep apnea) (Acute) HLD (hyperlipidemia) (Acute) Subjective: Patient is doing well. No acute events overnight. Postop day 2 from right hip intertrochanteric fracture fixation. Plan is to be discharged to correction facility in [place] where she is from. Patient feels her pain is improving. No chest pain or shortness of breath. No calf pain. Objective: Postop x-rays were reviewed showing stable well fixed intertrochanteric fracture with cephalo-medullary nail. - Physical Exam General: Alert, Oriented x3, Cooperative Extremities: - - Right lower extremity: Dressing is clean dry and intact Sensations intact to light touch saphenous, sural, superficial peroneal, deep peroneal, and tibial distributions Motors intact EHL, DF, PF calves are soft and supple Vital Signs Temp Pulse Resp BP Pulse Ox 97.8 F 99 18 129/48 H 97 10/23/18 02:40 10/23/18 02:40 10/23/18 02:40 10/23/18 02:40 10/23/18 02:40 Oxygen Flow Rate (L/min) 2 Oxygen Delivery Method Room Air Weight: 142 lb 3.17 oz Body Mass Index (BMI) 23.6 Intake and Output for Last 24 Hours 10/21/18 10/22/18 10/23/18 23:59 23:59 23:59 Intake Total 1326 / 1326 3630 / 3630 700 / 700 Output Total 990 / 990 625 / 625 Balance 336 / 336 3005 / 3005 700 / 700 Medical Necessity - Tobacco Use Smoking Status: Never smoker Assessment/Plan All Active Problems Fracture, intertrochanteric, right femur (Acute) REJI (obstructive sleep apnea) (Acute) HLD (hyperlipidemia) (Acute) 1. S/P right hip cephalo-medullary nail POD #2 2. Continue Pain Medications: Tylenol primarily for pain control, OxyIR for breakthrough pain 3. DVT Prophylaxis: Xarelto postoperatively for DVT prophylaxis 4. PT/OT: Weightbearing as tolerated, focus on mobility and independence 5. H & H: Stable, asymptomatic 6. Encouraged Incentive Spirometry 7. Continue postoperative medical management per medicine: Patient is doing well medically 8. Disposition: Orthopedically patient is doing well. Patient will continue physical therapy today. She is weightbearing as tolerated, therapy at the correction facility should focus on mobility and independence with activities of daily living. Continue with pain medications listed as above. Recommend Xarelto for DVT prophylaxis. Patient will need a 2-week follow-up with [facility] for incision check and x-ray. [facility] Office:
--- NOTE | 2018-10-23 08:56 | PN.ORTHO_ITS ---
Patient Problems: Active and Suspected Problems Fracture, intertrochanteric, right femur (Acute) REJI (obstructive sleep apnea) (Acute) HLD (hyperlipidemia) (Acute) Subjective: Patient is doing well. No acute events overnight. Postop day 2 from right hip intertrochanteric fracture fixation. Plan is to be discharged to [facility] facility in [place] where she is from. Patient feels her pain is improving. No chest pain or shortness of breath. No calf pain. Objective: Postop x-rays were reviewed showing stable well fixed intertrochanteric fracture with cephalo-medullary nail. - Physical Exam General: Alert, Oriented x3, Cooperative Extremities: - - Right lower extremity: Dressing is clean dry and intact Sensations intact to light touch saphenous, sural, superficial peroneal, deep peroneal, and tibial distributions Motors intact EHL, DF, PF calves are soft and supple Vital Signs Temp Pulse Resp BP Pulse Ox 97.8 F 99 18 129/48 H 97 10/23/18 02:40 10/23/18 02:40 10/23/18 02:40 10/23/18 02:40 10/23/18 02:40 Oxygen Flow Rate (L/min) 2 Oxygen Delivery Method Room Air Weight: 142 lb 3.17 oz Body Mass Index (BMI) 23.6 Intake and Output for Last 24 Hours 10/21/18 10/22/18 10/23/18 23:59 23:59 23:59 Intake Total 1326 / 1326 3630 / 3630 700 / 700 Output Total 990 / 990 625 / 625 Balance 336 / 336 3005 / 3005 700 / 700 Medical Necessity - Tobacco Use Smoking Status: Never smoker Assessment/Plan All Active Problems Fracture, intertrochanteric, right femur (Acute) REJI (obstructive sleep apnea) (Acute) HLD (hyperlipidemia) (Acute) 1. S/P right hip cephalo-medullary nail POD #2 2. Continue Pain Medications: Tylenol primarily for pain control, OxyIR for breakthrough pain 3. DVT Prophylaxis: Xarelto postoperatively for DVT prophylaxis 4. PT/OT: Weightbearing as tolerated, focus on mobility and independence 5. H & H: Stable, asymptomatic 6. Encouraged Incentive Spirometry 7. Continue postoperative medical management per medicine: Patient is doing well medically 8. Disposition: Orthopedically patient is doing well. Patient will continue physical therapy today. She is weightbearing as tolerated, therapy at [facility] should focus on mobility and independence with activities of daily living. Continue with pain medications listed as above. Recommend Xarelto for DVT prophylaxis. Patient will need a 2-week follow-up with [facility] for incision check and x-ray. [facility] Office:
[2018-10-23] MEDS: Calcium (Elemental) 500 MG Tablet 1000 MG PO (09:46)
[2018-10-23] MEDS: Polyethylene Glycol 3350 17 GM PACKET PO (09:47)
[2018-10-23] MEDS: MELATONIN 3 MG TABLET 1.5 MG PO (21:27)
[2018-10-24] VITALS (9 sets, daily range): BP systolic 85–117; BP diastolic 50–68; PULSE 88–98; RESP 18–20; TEMP 36.6–36.8; O2SAT 93–95
[2018-10-24] MEDS: Rivaroxaban 10 MG Tablet PO (06:06)
[2018-10-24] MEDS: traMADol 50 MG Tablet PO ×3 (06:07→23:12)
[2018-10-24] MEDS: Acetaminophen 500 MG Tablet 1000 MG PO ×3 (06:07→21:35)
--- NOTE | 2018-10-24 07:46 | PCM.PROGNOTE ---
Patient Problems: Active and Suspected Problems Fracture, intertrochanteric, right femur (Acute) Subjective: Chief complaint: Follow-up after admission for right hip fracture status post open right hip cephalo-medullary nail. Patient seen and examined. No acute events overnight. This morning, she complains of back pain secondary to her chronic sciatica. Right hip pain is manageable, she has been ambulating. Denies any other significant symptoms. Her vitals are stable - Physical Exam General: Alert, Oriented x3, Cooperative, No apparent distress HEENT: Atraumatic, PERRLA, EOMI, Normocephalic Oral: Moist Mucosa, No Gingival or Mucosal Lesions/ Ulcerations Neck: Supple, No JVD, Negative Carotid Bruits, Trachea Midline, Thyroid Normal Size and Texture Lungs: Clear to auscultation, No rhonchi, No wheeze, No rales, Diminished Cardiovascular: Regular rate, Regular Rhythm, Normal S1, Normal S2, PMI Normal Abdomen: Bowel Sounds Present, Soft, Non Tender, Non-Distended, No Hepato-splenomegaly Extremities: No clubbing, No cyanosis, No edema Skin: No rashes, No breakdown, Incision Lymphatic: No Cervical, Supraclavicular, or Inguinal Adenopathy Neurological: Cranial nerves II-XII grossly intact, Motor Exam 5/5 strength throughout Psych/Mental Status: Normal Affect, Appropriate, Alert and oriented to time, place, person, mood and affect Vital Signs Temp Pulse Resp BP Pulse Ox 97.9 F 88 18 102/60 95 10/24/18 02:20 10/24/18 02:30 10/24/18 02:20 10/24/18 02:20 10/24/18 02:20 Oxygen Flow Rate (L/min) 2 Oxygen Delivery Method CPAP Weight: 142 lb 3.17 oz Body Mass Index (BMI) 23.6 Intake and Output for Last 24 Hours 10/22/18 10/23/18 10/24/18 23:59 23:59 23:59 Intake Total 3630 / 3630 1580 / 1580 200 / 200 Output Total 625 / 625 Balance 3005 / 3005 1580 / 1580 200 / 200 Medical Necessity - Tobacco Use Smoking Status: Never smoker Assessment/Plan All Active Problems Fracture, intertrochanteric, right femur (Acute) This is an 83 years old female patient admitted to the hospital because of mechanical fall at home and right hip pain, found to have acute traumatic right intertrochanteric hip fracture, underwent surgical repair with right hip cephalo-medullary nail. #1 acute traumatic right intertrochanteric hip fracture: Status post right cephalo-medullary nail, postoperative day 3. She complains of low back pain due to chronic sciatica, improved with tramadol. Right hip pain is manageable, controlled. Her vital signs are stable. Most recent routine blood work reviewed, unremarkable. Patient has been ambulating with walker, doing well. Orthopedic surgery with the case. Awaiting insurance approval for placement to residential facility. #2 obstructive sleep apnea: On CPAP, continue same treatment. #3 history of breast cancer: Status post surgery, in remission, has been following up with Dr. Melchor. #4 hyperlipidemia: She is not on any statin at this point. Will defer to her PCP as outpatient. #5 DVT prophylaxis: On Xarelto. This note was generated with [employer] dictation software. It may contain incorrect words, spelling, and punctuation that were not noted in checking the note before signing. Code Visit Inpatient E&M: 51281 Subs Hosp L2
--- NOTE | 2018-10-24 07:49 | PN_ITS ---
Patient Problems: Active and Suspected Problems Fracture, intertrochanteric, right femur (Acute) Subjective: Chief complaint: Follow-up after admission for right hip fracture status post open right hip cephalo-medullary nail. Patient seen and examined. No acute events overnight. This morning, she complains of back pain secondary to her chronic sciatica. Right hip pain is manageable, she has been ambulating. Denies any other significant symptoms. Her vitals are stable - Physical Exam General: Alert, Oriented x3, Cooperative, No apparent distress HEENT: Atraumatic, PERRLA, EOMI, Normocephalic Oral: Moist Mucosa, No Gingival or Mucosal Lesions/ Ulcerations Neck: Supple, No JVD, Negative Carotid Bruits, Trachea Midline, Thyroid Normal Size and Texture Lungs: Clear to auscultation, No rhonchi, No wheeze, No rales, Diminished Cardiovascular: Regular rate, Regular Rhythm, Normal S1, Normal S2, PMI Normal Abdomen: Bowel Sounds Present, Soft, Non Tender, Non-Distended, No Hepato- splenomegaly Extremities: No clubbing, No cyanosis, No edema Skin: No rashes, No breakdown, Incision Lymphatic: No Cervical, Supraclavicular, or Inguinal Adenopathy Neurological: Cranial nerves II-XII grossly intact, Motor Exam 5/5 strength throughout Psych/Mental Status: Normal Affect, Appropriate, Alert and oriented to time, place, person, mood and affect Vital Signs Temp Pulse Resp BP Pulse Ox 97.9 F 88 18 102/60 95 10/24/18 02:20 10/24/18 02:30 10/24/18 02:20 10/24/18 02:20 10/24/18 02:20 Oxygen Flow Rate (L/min) 2 Oxygen Delivery Method CPAP Weight: 142 lb 3.17 oz Body Mass Index (BMI) 23.6 Intake and Output for Last 24 Hours 10/22/18 10/23/18 10/24/18 23:59 23:59 23:59 Intake Total 3630 / 3630 1580 / 1580 200 / 200 Output Total 625 / 625 Balance 3005 / 3005 1580 / 1580 200 / 200 Medical Necessity - Tobacco Use Smoking Status: Never smoker Assessment/Plan All Active Problems Fracture, intertrochanteric, right femur (Acute) This is an 83 years old female patient admitted to the hospital because of mechanical fall at home and right hip pain, found to have acute traumatic right intertrochanteric hip fracture, underwent surgical repair with right hip cephalo-medullary nail. #1 acute traumatic right intertrochanteric hip fracture: Status post right cephalo-medullary nail, postoperative day 3. She complains of low back pain due to chronic sciatica, improved with tramadol. Right hip pain is manageable, con trolled. Her vital signs are stable. Most recent routine blood work reviewed, unremarkable. Patient has been ambulating with walker, doing well. Orthopedic surgery with the case. Awaiting insurance approval for placement to custodial facility. #2 obstructive sleep apnea: On CPAP, continue same treatment. #3 history of breast cancer: Status post surgery, in remission, has been following up with Dr. Melchor. #4 hyperlipidemia: She is not on any statin at this point. Will defer to her PCP as outpatient. #5 DVT prophylaxis: On Xarelto. This note was generated with [employer] dictation software. It may contain incorrect words, spelling, and punctuation that were not noted in checking the note before signing. Code Visit Inpatient E&M: 64700 Subs Hosp L2
[2018-10-24] MEDS: Calcium (Elemental) 500 MG Tablet 1000 MG PO (09:55)
[2018-10-24] MEDS: Polyethylene Glycol 3350 17 GM PACKET PO (09:57)
[2018-10-24] MEDS: MELATONIN 3 MG TABLET 1.5 MG PO (21:35)
[2018-10-25 03:30] VITALS: BP 105/52; PULSE 72; RESP 18; TEMP 36.8; O2SAT 96
[2018-10-25 03:39] VITALS: PULSE 72
[2018-10-25] MEDS: Rivaroxaban 10 MG Tablet PO (06:25)
[2018-10-25] MEDS: Acetaminophen 500 MG Tablet 1000 MG PO ×3 (06:25→21:53)
[2018-10-25] MEDS: Calcium (Elemental) 500 MG Tablet 1000 MG PO (07:51)
[2018-10-25 08:06] VITALS: BP 111/56; PULSE 80; RESP 16; TEMP 36.6; O2SAT 92
--- NOTE | 2018-10-25 09:15 | CASEMGMT ---
Addendum entered by Shannan Chaudhari 10/25/18 11:40: SW updated pt that pre-cert was submitted Thursday and that this worker is still waiting for pre-cert. SW explained pt will be at [facility] until pre-cert is obtained. Per physician pt is medically cleared for discharge once pre-cert is obtained. Pt states that she would prefer for transportation to be arranged. SW spoke with RN who states a cot could be justified for pt. SW waiting for pre-cert. Original Note: Social Work Note JAYLON faxed updated clinicals to Rosa M at [facility]. Plan: [facility] pending pre-cert Shannan Chaudhari BINDER LAYER, NETWORK OPERATIONS ANALYST
--- NOTE | 2018-10-25 09:48 | PCM.TXEXTCAR ---
- Diet 10/21/18 16:35 Diet: Regular Diet Is pt able to select menu?: Yes - Routine Orders/Code Status Routine Lab Work: CBC - within 3 days, BMP - within 3 days - Wound(s) RT HIP Wound Type: Surgical Incision Dressing Change: Dry Sterile Dressing - Therapies Weight Bearing: Weight bearing as tolerated Extremity Affected:: Right Lower Physical Therapy: Eval and Treat Occupational Therapy: Eval and Treat - Allergies/Procedures Done in Hospital Allergies/Adverse Reactions: Allergies sulfamethoxazole [From Septra] Allergy (Verified 10/21/18 02:22) Swelling trimethoprim [From Septra] Allergy (Verified 10/21/18 02:22) Swelling ciprofloxacin [From Cipro] Adverse Reaction (Verified 10/21/18 02:22) Other ankle swelled up and could not move legs Procedures: - - s/p right cephalo-medullary nailing on 10/21/18 - Type of Care/Length of Stay Estimated LOS: Convalescent Care Less Than 30 days Type of Care Needed: Skilled Rehab Potential: Good Prognosis: Good - Additional Orders/Day of Discharge Day of Discharge: 10/25/18 - Follow Up Care Please follow up with your Primary Care Physician in: 2 weeks Please Follow Up With: Db Westbrook PA-C When: within 2 weeks for incision check and x-ray.
--- NOTE | 2018-10-25 09:51 | DS.PCM_ITS ---
Discharge Date and Diagnosis - Problem List Patient Problems: Active and Suspected Problems Fracture, intertrochanteric, right femur (Acute) Date of Admission: 10/21/18 Date of Discharge: 10/25/18 - Primary Discharge Diagnosis Active and Suspected Problems Fracture, intertrochanteric, right femur (Acute) - Secondary Discharge Diagnosis Chronic Problems REJI (obstructive sleep apnea) (Chronic) HLD (hyperlipidemia) (Chronic) Hospital Course and Treatment Imaging Results: Clinical Impression(s) from Imaging Studies Hip X-Ray 10/21/18 07:09 IMPRESSION: ORIF Electronically Signed: Konrad Cason MD at 15:30 EDT , Service support , Hip/Pelvis X-Ray 10/21/18 14:45 IMPRESSION: Status post ORIF of a subcapital femoral neck fracture of the right hip follow-up recommended to assure osseous union, no demonstrated complications. Electronically Signed: Konrad Cason MD at 15:10 EDT , Service support , None Operations: total hip replacement - On 10/21/18 Procedures: None Summary of Care Provided: 83 year-old female admitted to the hospital after a mechanical fall at home and sustains right hip pain, found to have acute traumatic right intertrochanteric hip fracture. She underwent surgical repair with right hip cephalo-medullary nail on 10/21/18. Postoperatively, patient continued to do well. She was seen by PT and OT. She was felt to require skilled needs as she has poor support at home. Her pain was controlled except for occasional sciatica pain. Insurance denied long term care. Patient was discharged home to be followed-up with home health team. She was prescribed gabapentin 100 mg nightly for sciatica pain Patient Problems: Active and Suspected Problems Fracture, intertrochanteric, right femur (Acute) Subjective: Day of exam, patient was seen and examined. She complains of sciatica pain, unable to get comfortable. Insurance denied long term care. She will be discharged home with home health. Objective: Physical exam: General: Alert, Oriented x3, Cooperative, No apparent distress HEENT: Atraumatic, PERRLA, EOMI, Normocephalic Oral: Moist Mucosa Neck: Supple Lungs: Clear to auscultation, Normal air movement Cardiovascular: Regular rate, Regular Rhythm, Normal S1, Normal S2, No murmurs Abdomen: Bowel Sounds Present, Soft, Non Tender, Non-Distended, No Hepato- splenomegaly Extremities: No edema Skin: No rashes, No breakdown Musculoskeletal: Tenderness - Over the right hip, dressing intact, no erythema seen Lymphatic: No Cervical, Supraclavicular, or Inguinal Adenopathy Neurological: Cranial nerves II-XII grossly intact, Neuro grossly intact Psych/Mental Status: Normal Affect, Appropriate - Physical Exam Vital Signs Temp Pulse Resp BP Pulse Ox 97.8 F 80 16 111/56 L 92 10/25/18 08:06 10/25/18 08:06 10/25/18 08:06 10/25/18 08:06 10/25/18 08:06 Oxygen Flow Rate (L/min) 2 Oxygen Delivery Method Room Air Weight: 64.5 kg Body Mass Index (BMI) 23.6 Intake and Output for Last 24 Hours 10/23/18 10/24/18 10/25/18 23:59 23:59 23:59 Intake Total 1580 / 1580 1420 / 1420 200 / 200 Balance 1580 / 1580 1420 / 1420 200 / 200 Discharge Diet: No Restrictions Home Medications: Medications to take at Discharge Gluc Dominguez/Chondro Dominguez A/Vit C/Mn [Glucosamine-Chondroitin Cap] 1 each PO TIDCM 10/21/18 Pyridoxine HCl [Vitamin B6] 50 mg PO DAILY 10/21/18 Red Yeast Rice 600 mg PO SA 10/21/18 Acetaminophen [Tylenol] 1,000 mg PO Q8 tablet 10/25/18 Bisacodyl [Dulcolax] 10 mg PO DAILY PRN PRN tablet 10/25/18 Calcium (Elemental) [Os-Lopez 500] 1,000 mg PO DAILY@0800 tablet 10/25/18 Cholecalciferol (VIT D3) [Vitamin D3] 1,000 unit PO DAILY tablet 10/25/18 Magnesium Hydroxide [Milk Of Magnesia] 30 ml PO DAILY PRN PRN udc 10/25/18 Melatonin 1.5 mg PO QHS PRN #30 tablet 10/25/18 Rivaroxaban [Xarelto] 10 mg PO DAILY@0600 tablet 10/25/18 traMADol [Ultram] 50 mg PO Q6H PRN PRN 5 Days #20 tab 10/25/18 Gabapentin [Neurontin] 100 mg PO QHS #30 capsule 10/27/18 Following Prescrptions Were Given to Patient: traMADol [Ultram] 50 mg PO Q6H PRN PRN 5 Days #20 tab PRN Reason: Moderate Pain (4-5/10) Gabapentin [Neurontin] 100 mg PO QHS #30 capsule Please follow up with your Primary Care Physician in: 2 weeks Please Follow Up With: Db Westbrook PA-C When: within 2 weeks for incision check and x-ray. Disposition: Home with Home Health Minutes spent on discharge:: 45 Patient Condition:: Stable Medical Necessity - Tobacco Use Smoking Status: Never smoker Tobacco Use: Non-smoker Meaningful Use Info Meaningful Use Diagnoses (Choose all that apply): None applicable Code Visit Inpatient E&M: 68724 Disch Hosp
[2018-10-25] MEDS: Polyethylene Glycol 3350 17 GM PACKET PO (10:13)
[2018-10-25] MEDS: traMADol 50 MG Tablet PO ×2 (12:41→23:40)
--- NOTE | 2018-10-25 14:04 | CASEMGMT ---
Addendum entered by Shannan Chaudhari 10/25/18 15:00: SW spoke with Rosa M in admissions at [facility] who states she hasn't received pre-cert yet. Original Note: Social Work Note SW attempted to call Rosa M at [facility], voicemail full, unable to leave message. SW will try again as time permits to call Rosa M in regards to pre-cert. Plan: [facility] pending pre-cert Shannan Chaudhari FLORIST MANAGER, M[employer]ATED [employer]ALL
[2018-10-25 15:35] VITALS: BP 124/67; PULSE 81; RESP 16; TEMP 36.9; O2SAT 96
--- NOTE | 2018-10-25 15:44 | PCM.PN.HOSP ---
Patient Problems: Active and Suspected Problems Fracture, intertrochanteric, right femur (Acute) Subjective: Patient was seen and examined. Denied any new complaints. Her pain in the right hip is 4 out of 10. Denied any fever or chills. Vitals/I&O's: Vital Signs Temp Pulse Resp BP Pulse Ox 98.4 F 81 16 124/67 H 96 10/25/18 15:35 10/25/18 15:35 10/25/18 15:35 10/25/18 15:35 10/25/18 15:35 Oxygen Flow Rate (L/min) 2 Oxygen Delivery Method Room Air Weight: 64.5 kg Body Mass Index (BMI) 23.6 Intake and Output for Last 24 Hours 10/23/18 10/24/18 10/25/18 23:59 23:59 23:59 Intake Total 1580 / 1580 1420 / 1420 700 / 700 Output Total 100 / 100 Balance 1580 / 1580 1420 / 1420 600 / 600 General: Alert, Oriented x3, Cooperative, No apparent distress HEENT: Atraumatic, PERRLA, EOMI, Normocephalic Oral: Moist Mucosa Neck: Supple Lungs: Clear to auscultation, Normal air movement Cardiovascular: Regular rate, Regular Rhythm, Normal S1, Normal S2, No murmurs Abdomen: Bowel Sounds Present, Soft, Non Tender, Non-Distended, No Hepato-splenomegaly Extremities: No edema Skin: No rashes, No breakdown Musculoskeletal: Tenderness - Over the right hip, dressing intact, no erythema seen Lymphatic: No Cervical, Supraclavicular, or Inguinal Adenopathy Neurological: Cranial nerves II-XII grossly intact, Neuro grossly intact Psych/Mental Status: Normal Affect, Appropriate Current Medications Acetaminophen (Tylenol) 1,000 mg PO Q8 [facility] Last Admin: 10/25/18 15:33 Dose: 1,000 mg Bisacodyl (Dulcolax) 10 mg PO DAILY PRN PRN PRN Reason: Constipation Calcium Carbonate (Os-Lopez 500) 1,000 mg PO DAILY@0800 [facility] Last Admin: 10/25/18 07:51 Dose: 1,000 mg Cholecalciferol (Vitamin D) 1,000 unit PO DAILY [facility] Last Admin: 10/25/18 10:13 Dose: 1,000 unit Magnesium Hydroxide (Milk Of Magnesia) 30 ml PO DAILY PRN PRN PRN Reason: Constipation Melatonin (Melatonin) 1.5 mg PO QHS [facility] Last Admin: 10/24/18 21:35 Dose: 1.5 mg Ondansetron HCl (Zofran) 4 mg IV Q8H PRN PRN PRN Reason: NAUSEA/VOMITING Polyethylene Glycol (Miralax) 17 gm PO DAILY [facility] Last Admin: 10/25/18 10:13 Dose: 17 gm Rivaroxaban (Xarelto) 10 mg PO DAILY@0600 [facility] Last Admin: 10/25/18 06:25 Dose: 10 mg Sodium Chloride () 5 - 15 ml IV UD PRN PRN Reason: SALINE FLUSH Last Admin: 10/21/18 08:32 Dose: 10 ml Tramadol HCl (Ultram) 50 mg PO Q6H PRN PRN PRN Reason: MODERATE PAIN (4-5/10) Last Admin: 10/25/18 12:41 Dose: 50 mg Medical Necessity - Tobacco Use Smoking Status: Never smoker Assessment/Plan All Active Problems Fracture, intertrochanteric, right femur (Acute) 83 year-old female admitted to the hospital after a mechanical fall at home and sustains right hip pain, found to have acute traumatic right intertrochanteric hip fracture. She underwent surgical repair with right hip cephalo-medullary nail on 10/21/18. 1. Postop day #4 status post right cephalo-medullary nail, for right intertrochanteric fracture, pain is controlled, vitals are stable Awaiting discharge to longterm facility for subacute rehab 2. REJI on CPAP 3. History of breast cancer, s/p surgery, in remission, following Dr. Melchor. 4. Hyperlipidemia, not on statins 5. DVT prophylaxis -On Xarelto. Code Visit Inpatient E&M: 49966 Subs Hosp L2
--- NOTE | 2018-10-25 15:48 | PN_ITS ---
Patient Problems: Active and Suspected Problems Fracture, intertrochanteric, right femur (Acute) Subjective: Patient was seen and examined. Denied any new complaints. Her pain in the right hip is 4 out of 10. Denied any fever or chills. Vitals/I&O's: Vital Signs Temp Pulse Resp BP Pulse Ox 98.4 F 81 16 124/67 H 96 10/25/18 15:35 10/25/18 15:35 10/25/18 15:35 10/25/18 15:35 10/25/18 15:35 Oxygen Flow Rate (L/min) 2 Oxygen Delivery Method Room Air Weight: 64.5 kg Body Mass Index (BMI) 23.6 Intake and Output for Last 24 Hours 10/23/18 10/24/18 10/25/18 23:59 23:59 23:59 Intake Total 1580 / 1580 1420 / 1420 700 / 700 Output Total 100 / 100 Balance 1580 / 1580 1420 / 1420 600 / 600 General: Alert, Oriented x3, Cooperative, No apparent distress HEENT: Atraumatic, PERRLA, EOMI, Normocephalic Oral: Moist Mucosa Neck: Supple Lungs: Clear to auscultation, Normal air movement Cardiovascular: Regular rate, Regular Rhythm, Normal S1, Normal S2, No murmurs Abdomen: Bowel Sounds Present, Soft, Non Tender, Non-Distended, No Hepato- splenomegaly Extremities: No edema Skin: No rashes, No breakdown Musculoskeletal: Tenderness - Over the right hip, dressing intact, no erythema seen Lymphatic: No Cervical, Supraclavicular, or Inguinal Adenopathy Neurological: Cranial nerves II-XII grossly intact, Neuro grossly intact Psych/Mental Status: Normal Affect, Appropriate Current Medications Acetaminophen (Tylenol) 1,000 mg PO Q8 [facility] Last Admin: 10/25/18 15:33 Dose: 1,000 mg Bisacodyl (Dulcolax) 10 mg PO DAILY PRN PRN PRN Reason: Constipation Calcium Carbonate (Os-Lopez 500) 1,000 mg PO DAILY@0800 [facility] Last Admin: 10/25/18 07:51 Dose: 1,000 mg Cholecalciferol (Vitamin D) 1,000 unit PO DAILY [facility] Last Admin: 10/25/18 10:13 Dose: 1,000 unit Magnesium Hydroxide (Milk Of Magnesia) 30 ml PO DAILY PRN PRN PRN Reason: Constipation Melatonin (Melatonin) 1.5 mg PO QHS [facility] Last Admin: 10/24/18 21:35 Dose: 1.5 mg Ondansetron HCl (Zofran) 4 mg IV Q8H PRN PRN PRN Reason: NAUSEA/VOMITING Polyethylene Glycol (Miralax) 17 gm PO DAILY [facility] Last Admin: 10/25/18 10:13 Dose: 17 gm Rivaroxaban (Xarelto) 10 mg PO DAILY@0600 [facility] Last Admin: 10/25/18 06:25 Dose: 10 mg Sodium Chloride () 5 - 15 ml IV UD PRN PRN Reason: SALINE FLUSH Last Admin: 10/21/18 08:32 Dose: 10 ml Tramadol HCl (Ultram) 50 mg PO Q6H PRN PRN PRN Reason: MODERATE PAIN (4-5/10) Last Admin: 10/25/18 12:41 Dose: 50 mg Medical Necessity - Tobacco Use Smoking Status: Never smoker Assessment/Plan All Active Problems Fracture, intertrochanteric, right femur (Acute) 83 year-old female admitted to the hospital after a mechanical fall at home and sustains right hip pain, found to have acute traumatic right intertrochanteric hip fracture. She underwent surgical repair with right hip cephalo-medullary nail on 10/21/18. 1. Postop day #4 status post right cephalo-medullary nail, for right intertrochanteric fracture, pain is controlled, vitals are stable Awaiting discharge to senior care facility for subacute rehab 2. REJI on CPAP 3. History of breast cancer, s/p surgery, in remission, following Dr. Melchor. 4. Hyperlipidemia, not on statins 5. DVT prophylaxis -On Xarelto. Code Visit Inpatient E&M: 32429 Subs Hosp L2
[2018-10-25 19:42] VITALS: BP 111/46; PULSE 80; RESP 18; TEMP 36.7; O2SAT 93
[2018-10-25] MEDS: MELATONIN 3 MG TABLET 1.5 MG PO (21:53)
[2018-10-26 02:05] VITALS: BP 115/56; PULSE 79; RESP 18; TEMP 36.7; O2SAT 98
[2018-10-26] MEDS: Rivaroxaban 10 MG Tablet PO (05:55)
[2018-10-26] MEDS: Acetaminophen 500 MG Tablet 1000 MG PO ×3 (05:55→21:25)
[2018-10-26 07:41] VITALS: BP 115/59; PULSE 72; RESP 16; TEMP 36.4; O2SAT 97
[2018-10-26] MEDS: Calcium (Elemental) 500 MG Tablet 1000 MG PO (08:43)
[2018-10-26] MEDS: Polyethylene Glycol 3350 17 GM PACKET PO (08:43)
--- NOTE | 2018-10-26 09:13 | PCM.PN.HOSP ---
Patient Problems: Active and Suspected Problems Fracture, intertrochanteric, right femur (Acute) Subjective: Patient seen and examined. She feels improved. Pain is controlled. Pain is worse when she sits in the chair. Likes to walk around. Denies any fever or chills. Objective: Physical exam: General: Alert, Oriented x3, Cooperative, No apparent distress HEENT: Atraumatic, PERRLA, EOMI, Normocephalic Oral: Moist Mucosa Neck: Supple Lungs: Clear to auscultation, Normal air movement Cardiovascular: Regular rate, Regular Rhythm, Normal S1, Normal S2, No murmurs Abdomen: Bowel Sounds Present, Soft, Non Tender, Non-Distended, No Hepato-splenomegaly Extremities: No edema Skin: No rashes, No breakdown Musculoskeletal: Tenderness - Over the right hip, dressing intact, no erythema seen Lymphatic: No Cervical, Supraclavicular, or Inguinal Adenopathy Neurological: Cranial nerves II-XII grossly intact, Neuro grossly intact Psych/Mental Status: Normal Affect, Appropriate Vitals/I&O's: Vital Signs Temp Pulse Resp BP Pulse Ox 97.5 F L 72 16 115/59 L 97 10/26/18 07:41 10/26/18 07:41 10/26/18 07:41 10/26/18 07:41 10/26/18 07:41 Oxygen Flow Rate (L/min) 2 Oxygen Delivery Method Room Air Weight: 64.5 kg Body Mass Index (BMI) 23.6 Intake and Output for Last 24 Hours 10/24/18 10/25/18 10/26/18 23:59 23:59 23:59 Intake Total 1420 / 1420 1000 / 1000 450 / 450 Output Total 300 / 300 Balance 1420 / 1420 700 / 700 450 / 450 Current Medications Acetaminophen (Tylenol) 1,000 mg PO Q8 [facility] Last Admin: 10/26/18 05:55 Dose: 1,000 mg Bisacodyl (Dulcolax) 10 mg PO DAILY PRN PRN PRN Reason: Constipation Calcium Carbonate (Os-Lopez 500) 1,000 mg PO DAILY@0800 [facility] Last Admin: 10/26/18 08:43 Dose: 1,000 mg Cholecalciferol (Vitamin D) 1,000 unit PO DAILY [facility] Last Admin: 10/26/18 08:43 Dose: 1,000 unit Magnesium Hydroxide (Milk Of Magnesia) 30 ml PO DAILY PRN PRN PRN Reason: Constipation Melatonin (Melatonin) 1.5 mg PO QHS [facility] Last Admin: 10/25/18 21:53 Dose: 1.5 mg Ondansetron HCl (Zofran) 4 mg IV Q8H PRN PRN PRN Reason: NAUSEA/VOMITING Polyethylene Glycol (Miralax) 17 gm PO DAILY [facility] Last Admin: 10/26/18 08:43 Dose: 17 gm Rivaroxaban (Xarelto) 10 mg PO DAILY@0600 [facility] Last Admin: 10/26/18 05:55 Dose: 10 mg Sodium Chloride () 5 - 15 ml IV UD PRN PRN Reason: SALINE FLUSH Last Admin: 10/21/18 08:32 Dose: 10 ml Tramadol HCl (Ultram) 50 mg PO Q6H PRN PRN PRN Reason: MODERATE PAIN (4-5/10) Last Admin: 10/25/18 23:40 Dose: 50 mg Medical Necessity - Tobacco Use Smoking Status: Never smoker Assessment/Plan All Active Problems Fracture, intertrochanteric, right femur (Acute) 83 year-old female admitted to the hospital after a mechanical fall at home and sustains right hip pain, found to have acute traumatic right intertrochanteric hip fracture. She underwent surgical repair with right hip cephalo-medullary nail on 10/21/18. 1. Postop day #5, status post right cephalo-medullary nail, for right intertrochanteric fracture, pain is controlled, vitals are stable [facility] 2. REJI on CPAP 3. History of breast cancer, s/p surgery, in remission, following Dr. Melchor. 4. Hyperlipidemia, not on statins 5. DVT prophylaxis -On Xarelto. Code Visit Inpatient E&M: 47206 Subs Hosp L2
--- NOTE | 2018-10-26 09:17 | PN_ITS ---
Patient Problems: Active and Suspected Problems Fracture, intertrochanteric, right femur (Acute) Subjective: Patient seen and examined. She feels improved. Pain is controlled. Pain is worse when she sits in the chair. Likes to walk around. Denies any fever or chills. Objective: Physical exam: General: Alert, Oriented x3, Cooperative, No apparent distress HEENT: Atraumatic, PERRLA, EOMI, Normocephalic Oral: Moist Mucosa Neck: Supple Lungs: Clear to auscultation, Normal air movement Cardiovascular: Regular rate, Regular Rhythm, Normal S1, Normal S2, No murmurs Abdomen: Bowel Sounds Present, Soft, Non Tender, Non-Distended, No Hepato- splenomegaly Extremities: No edema Skin: No rashes, No breakdown Musculoskeletal: Tenderness - Over the right hip, dressing intact, no erythema seen Lymphatic: No Cervical, Supraclavicular, or Inguinal Adenopathy Neurological: Cranial nerves II-XII grossly intact, Neuro grossly intact Psych/Mental Status: Normal Affect, Appropriate Vitals/I&O's: Vital Signs Temp Pulse Resp BP Pulse Ox 97.5 F L 72 16 115/59 L 97 10/26/18 07:41 10/26/18 07:41 10/26/18 07:41 10/26/18 07:41 10/26/18 07:41 Oxygen Flow Rate (L/min) 2 Oxygen Delivery Method Room Air Weight: 64.5 kg Body Mass Index (BMI) 23.6 Intake and Output for Last 24 Hours 10/24/18 10/25/18 10/26/18 23:59 23:59 23:59 Intake Total 1420 / 1420 1000 / 1000 450 / 450 Output Total 300 / 300 Balance 1420 / 1420 700 / 700 450 / 450 Current Medications Acetaminophen (Tylenol) 1,000 mg PO Q8 [facility] Last Admin: 10/26/18 05:55 Dose: 1,000 mg Bisacodyl (Dulcolax) 10 mg PO DAILY PRN PRN PRN Reason: Constipation Calcium Carbonate (Os-Lopez 500) 1,000 mg PO DAILY@0800 [facility] Last Admin: 10/26/18 08:43 Dose: 1,000 mg Cholecalciferol (Vitamin D) 1,000 unit PO DAILY [facility] Last Admin: 10/26/18 08:43 Dose: 1,000 unit Magnesium Hydroxide (Milk Of Magnesia) 30 ml PO DAILY PRN PRN PRN Reason: Constipation Melatonin (Melatonin) 1.5 mg PO QHS [facility] Last Admin: 10/25/18 21:53 Dose: 1.5 mg Ondansetron HCl (Zofran) 4 mg IV Q8H PRN PRN PRN Reason: NAUSEA/VOMITING Polyethylene Glycol (Miralax) 17 gm PO DAILY [facility] Last Admin: 10/26/18 08:43 Dose: 17 gm Rivaroxaban (Xarelto) 10 mg PO DAILY@0600 [facility] Last Admin: 10/26/18 05:55 Dose: 10 mg Sodium Chloride () 5 - 15 ml IV UD PRN PRN Reason: SALINE FLUSH Last Admin: 10/21/18 08:32 Dose: 10 ml Tramadol HCl (Ultram) 50 mg PO Q6H PRN PRN PRN Reason: MODERATE PAIN (4-5/10) Last Admin: 10/25/18 23:40 Dose: 50 mg Medical Necessity - Tobacco Use Smoking Status: Never smoker Assessment/Plan All Active Problems Fracture, intertrochanteric, right femur (Acute) 83 year-old female admitted to the hospital after a mechanical fall at home and sustains right hip pain, found to have acute traumatic right intertrochanteric hip fracture. She underwent surgical repair with right hip cephalo-medullary nail on 10/21/18. 1. Postop day #5, status post right cephalo-medullary nail, for right intertrochanteric fracture, pain is controlled, vitals are stable Awaiting discharge to snf facility for subacute rehab 2. REJI on CPAP 3. History of breast cancer, s/p surgery, in remission, following Dr. Melchor. 4. Hyperlipidemia, not on statins 5. DVT prophylaxis -On Xarelto. Code Visit Inpatient E&M: 02641 Subs Hosp L2
--- NOTE | 2018-10-26 10:28 | CASEMGMT ---
Addendum entered by Shannan Chaudhari 10/26/18 11:01: SW faxed updated clinicals to [facility]. Original Note: Addendum entered by Shannan Chaudhari 10/26/18 10:33: JAYLON received call from Ana at [facility], stating she hasn't heard anything back regarding pre-cert. JAYLON informed Ana that pt is ready for discharge once pre-cert is obtained. Original Note: Social Work Note JAYLON placed a call to Rosa M in admissions at [facility], left message inquiring if she has heard anything regarding pt's pre-cert. SW waiting for call back. Plan: [facility] pending pre-cert Shannan Chaudhari CAN WASHER, PAID SEARCH MARKETING STRATEGIST
[2018-10-26] MEDS: traMADol 50 MG Tablet PO ×2 (11:15→23:29)
[2018-10-26 11:17] VITALS: BP 119/58; PULSE 76; RESP 16; TEMP 36.8; O2SAT 97
--- NOTE | 2018-10-26 14:38 | CASEMGMT ---
Social Work Note SW placed a call to Rosa M at [facility], left message, informing her that updated PT/OT were faxed earlier today and inquiring if she has heard from insurance yet. JAYLON waiting for call back. Plan: [facility] pending pre-cert Shannan Chaudhari BIOMEDICAL ENGINEERING AIDE, USABILITY ENGINEER
[2018-10-26 15:29] VITALS: BP 116/53; PULSE 78; RESP 16; TEMP 36.6; O2SAT 96
--- NOTE | 2018-10-26 15:39 | CASEMGMT ---
Social Work Note SW received call from Rosa M in Admissions stating pt was denied by insurance. JAYLON reviewed PT/OT notes, pt walked Stand By 400ft yesterday and 250ft today supervision. JAYLON met with pt, SW informed pt that insurance has denied her. SW informed pt that she is walking really well and doing well after her surgery. JAYLON spoke to pt regarding HHC. Pt is agreeable to HHC and states she would like [facility]. RN JUANCHO Wyatt walked into pt's room and states she will work on arranging C for pt. SW asked pt if she would like this worker to call her son's. Pt states that her son's are working but gave this worker permission to call her daughter in law Idalia ([phone]). Pt states that Idalia was planning on assisting pt and taking her clothes to [facility]. SW informed pt that this worker will call Idalia. JAYLON placed a call to pt's daughter in law Idalia, spoke with Idalia informed her that pt was denied SNF and that pt is agreeable to HHC. SW informed Idalia that HHC will need to be arranged before pt is able to discharge and that it is unlikely it will be arranged today. Idalia states understanding. Plan: Home with HHC now as pt was denied SNF. Shannan Chaudhari ILLUSTRATOR SET, [employer]
--- NOTE | 2018-10-26 15:58 | CHAPLAIN ---
Type of Pastoral Visit ___ Initial Visit _x__ Follow-up Visit ___ On-call Visit ___ General Patient Visit ___ Spiritual Assessment ___ Family Conference ___ Bereavement ___ Rapid Response ___ Code Blue ___ Other (describe below) Pastoral Care Referral From _x__ Patient ___ Family ___ Nurse ___ Physician ___ Grommet Machine Operator ___ Sap Solution Manager Consultant ___ Other (describe below) Sacrament/Intervention _x__ Active listening ___ Anointing ___ Congregational ___ Bereavement ___ Communion _x__ Venus exploration ___ _x__ Life review _x__ Prayer ___ Reconciliation ___ Sacrament of Sick _x__ Supportive presence ___ Wedding ___ Other (describe below) Pastoral Comments patient is waiting for approval to be moved to [facility]; pt seeks support presence and spiritual care
--- NOTE | 2018-10-26 16:03 | CASEMGMT ---
Addendum entered by Edmundo Das 10/26/18 16:35: Call back received from Shayla @ [facility]. They can accept patient with planned start of care on October. Pt was updated. Laurence BSN RN ACM Original Note: RN JUANCHO Note: Working in conjunction with Brenda IYER for dc planning. SNF was denied by insurance. Intro role of CM to patient in room. She is agreeable to return home with [facility]. Discussed [facility], pt is agreeable. Call to [place]- spoke with Edmundo who will forward referral to her nursing supervisor firearms for review. Anticipated dc date of tomorrow given to Edmundo. Information faxed and return ok received. [facility] PH: FX:
[2018-10-26 20:28] VITALS: BP 119/64; PULSE 75; RESP 16; TEMP 36.8; O2SAT 97
[2018-10-26] MEDS: MELATONIN 3 MG TABLET 1.5 MG PO (21:25)
[2018-10-27 02:45] VITALS: BP 111/58; PULSE 72; RESP 14; TEMP 36.4; O2SAT 98
[2018-10-27] MEDS: Rivaroxaban 10 MG Tablet PO (05:14)
[2018-10-27] MEDS: Acetaminophen 500 MG Tablet 1000 MG PO (05:15)
[2018-10-27 06:05] LABS: Absolute Lymphocyte Count 1.02 X10^3/ul (0.83-4.51); Absolute Neutrophil Count 2.8 X10^3/uL (2.0-7.7); Basophil# 0.03 X10^3/uL; Basophil% 0.6 % (0-1); Eosinophil# 0.25 X10^3/uL; Eosinophils% 5.1 % (0-5); Hematocrit 30.8 % (37-47); Hemoglobin 10.1 g/dl (12.0-15.0); Lymphocyte # 1.02 X10^3/ul (4.0); Mean Corp Hgb Conc 32.8 g/gl (32-36); Mean Corpuscular Hgb 30.6 pg (27.0-32.0); Mean Corpuscular Volume 93.3 fL (81-99); Mean Platelet Vol. 10.1 fl (6.2-12.0); Monocyte# 0.73 X10^3/uL; Neutrophil # 2.81 X10^3/uL (2.7-7.7); Neutrophil % 57.9 % (47-70); Platelet Count 236 K/mm3 (150-450); RBC Distribution Width CV 13.1 % (11.6-14.6); RBC Distribution Width SD 43.1 fl (35.1-43.9); White Blood Count 4.9 K/mm3 (4.4-11.0)
[2018-10-27 06:06] LABS: POSITIVE COUNT NO; POSITIVE DIFFERENTIAL NO; POSITIVE MORPHOLOGY NO
[2018-10-27 06:29] LABS: Anion Gap 6 (5-15); BUN 16 mg/dL (7-18); BUN/Creat Ratio 21.7 RATIO (10-20); Calcium,Total 8.4 mg/dL (8.5-10.1); Chloride 104 mmol/L (98-107); Creatinine, Serum 0.74 mg/dL (0.55-1.02); EST Glomerular Filtration Rate 80 mL/min (>60); Est Glom Filt Rate - Afr Amer 97 mL/min (>60); Estimated Creatinine Clearance 39.03 ml/min; Glucose 89 mg/dL (74-106); Sodium Level 139 mmol/L (136-145)
[2018-10-27 07:20] VITALS: BP 120/64; PULSE 72; RESP 16; TEMP 36.6; O2SAT 97
--- NOTE | 2018-10-27 08:18 | DCINST_ITS ---
- Discharge Diagnoses Current Active Problems: Current Active and Chronic Problems Fracture, intertrochanteric, right femur (Acute) REJI (obstructive sleep apnea) (Chronic) HLD (hyperlipidemia) (Chronic) Reason(s) for Visit for Discharge Instructions: Fall, hip fracture You will use the following diet at home:: Regular Your food should be the consistency of: Regular Your liquids should be the consistency of: Regular/Thin Discharge Activity: Return to Normal Activity Additional Instructions: You will be discharged with home health PT/OT. Take all your medications. Follow-up with orthopedics as scheduled Allergies/Adverse Reactions: Allergies sulfamethoxazole [From Septra] Allergy (Verified 10/21/18 02:22) Swelling trimethoprim [From Septra] Allergy (Verified 10/21/18 02:22) Swelling ciprofloxacin [From Cipro] Adverse Reaction (Verified 10/21/18 02:22) Other ankle swelled up and could not move legs Medications to take at Discharge Gluc Dominguez/Chondro Dominguez A/Vit C/Mn [Glucosamine-Chondroitin Cap] 1 each PO TIDCM 10/21/18 Pyridoxine HCl [Vitamin B6] 50 mg PO DAILY 10/21/18 Red Yeast Rice 600 mg PO SA 10/21/18 Acetaminophen [Tylenol] 1,000 mg PO Q8 tablet 10/25/18 Bisacodyl [Dulcolax] 10 mg PO DAILY PRN PRN tablet 10/25/18 Calcium (Elemental) [Os-Lopez 500] 1,000 mg PO DAILY@0800 tablet 10/25/18 Cholecalciferol (VIT D3) [Vitamin D3] 1,000 unit PO DAILY tablet 10/25/18 Magnesium Hydroxide [Milk Of Magnesia] 30 ml PO DAILY PRN PRN udc 10/25/18 Melatonin 1.5 mg PO QHS PRN #30 tablet 10/25/18 Rivaroxaban [Xarelto] 10 mg PO DAILY@0600 tablet 10/25/18 traMADol [Ultram] 50 mg PO Q6H PRN PRN 5 Days #20 tab 10/25/18 The following prescriptions were given: traMADol [Ultram] 50 mg PO Q6H PRN PRN 5 Days #20 tab PRN Reason: Moderate Pain (4-5/10) Please follow up with your Primary Care Physician in: in 2 weeks Test Results: Test results from this visit will be discussed in further detail at your follow- up appointment, if applicable. Please Follow Up With: Db Westbrook PA-C When: within 2 weeks for incision check and x-ray. Proposed Discharge Date: 10/27/18
[2018-10-27] MEDS: Polyethylene Glycol 3350 17 GM PACKET PO (08:55)
[2018-10-27] MEDS: Calcium (Elemental) 500 MG Tablet 1000 MG PO (08:55)
--- NOTE | 2018-10-27 09:04 | CASEMGMT ---
STEPHANIE DAWKINS NOTE: To room to talk with pt. Intro self to pt. Pt sitting up in recliner chair in room. A/Ox3. Discussed discharge planning with pt. Pt inquiring about unskilled care through [facility]. Ivet IYER, notified and states will follow up with [facility] to inquire about services they provide. Pt is aware [facility] start of care will be tomorrow 10/28. Discussed options of having someone stay with her for the night tonight to assist with getting settled in @ her home and to assist her during the evening/night. Pt states she will check with her DIL to see if she may be available to stay with her for 1-[address] Cazares inquiring if pt would qualify to receive aide services @ home more frequently than 2-3 x's/week. Call placed to [facility] and spoke with Bruna. She was made aware pt is discharging today. Discharge instructions and signed order for [facility] faxed to [facility] @ . Discussed with [facility] of option of pt receiving aides more frequently than 2-3 x's/week. She stated [facility] will only pay for skilled aide services 2-3 x's week. She was made aware aide services and SW added for assistance with/providing resources for non-skilled services as pt is inquiring about/interested in paying [id number] for additional services. Darian BROOKS RN, CM
--- NOTE | 2018-10-27 09:46 | NURSING ---
informed ray the PA of dr dorsey that pt has a few questions for them.
--- NOTE | 2018-10-27 11:17 | CASEMGMT ---
SW called [facility], confirmed they do have supportive services at home. Message left for Khushi at [facility] to call this SW back with information regarding their services. SW spoke w/pt, son Aureliano and daughter in law in room. SW confirmed w/family someone will stay w/pt tonight. SW encouraged family to stay w/pt a couple of days. SW let pt know that the social worker clinical from [facility] will come in to see her at home and bring her information regarding resources. SW gave her a list of private hire aide agencies and gave her the number to [facility] as well. SW let pt know they do have a support at home program, and this SW left them a message. SW explained should SW hear back before she leaves today will let her know what SW finds out about the services offered. Otherwise, SW encouraged pt to call on her own. Pt states understanding. No further needs, pt home with family and [facility] at discharge, and she has information for private hire aide agencies if needed. DODIE Cao
[2018-10-27 12:00] VITALS: BP 115/60; PULSE 82; RESP 16; TEMP 36.4; O2SAT 98
[2018-10-27] MEDS: traMADol 50 MG Tablet PO (13:44)
[2018-10-27 14:00] VITALS: BP 118/53; PULSE 87; RESP 16; TEMP 36.7; O2SAT 96
--- NOTE | 2018-10-27 14:00 | NURSING ---
notified ray the PA that pt does not have script for xerleto. he was going to call in 1 weeks worth to pt pharmacy
[2018-10-27 14:01] VITALS: BP 118/53; PULSE 87; RESP 16; TEMP 36.6; O2SAT 96
== END 2018-10-27 15:00 | disposition home or self-care (01) | DRG 482 ==
PROVIDERS: Internal Medicine; Specialist; Admitting Provider Family Medicine; Referring Provider Family Medicine; Visit Provider Hospitalist
PROC: (CPT 27245; principal; 2018-10-21 12:30)
DX: S72.144A Nondisplaced intertrochanteric fracture of right femur, initial encounter for closed fracture (principal); W01.0XXA Fall on same level from slipping, tripping and stumbling without subsequent striking against object, initial encounter; Y93.01 Activity, walking, marching and hiking; Y92.018 Other place in single-family (private) house as the place of occurrence of the external cause; G47.33 Obstructive sleep apnea (adult) (pediatric); Z85.3 Personal history of malignant neoplasm of breast; E78.5 Hyperlipidemia, unspecified; E86.0 Dehydration
CPT/HCPCS: 36415; 73502; 76000; 80048; 80061; 83735; 84100; 85025; 85027; 85610; 86850; 86900; 97110; 97116; 97162; 97166; 97530; 97535; C1776; J7030; J7120; A4216; J2405